=== PATIENT | female | born 1965 | race Caucasian/White ===

== ENCOUNTER 2020-07-13 13:58 | Outpatient (REF) | payer OTHER, SELFPAY ==
[2020-07-13 17:28] LABS: Syphilis Screen Nonreactive (Nonreactive)
[2020-07-14 08:04] LABS: HBsAGNum1 0.13 S/CO (0.00-0.99); HIV AB/AG Nonreactive (Nonreactive); HIV Num 1 0.08 S/CO (0.00-0.99); Hepatitis B Surface Antigen Negative (Negative)
[2020-07-14 09:17] LABS: HBS Num1 0.38 mIU/mL (0-7.99); HBc Num1 0.27 S/CO (0.00-0.79); Hepatitis B Core Antibody Nonreactive (Nonreactive); ~HepC Num1 0.12 S/CO (0.00-0.79); ~Hepatitis B Surface Antibody NONREACTIVE (Nonreactive); ~Hepatitis C Antibody Nonreactive (Nonreactive)
[2020-07-15 08:45] LABS: Hepatitis A Antibody IgM 0.47 Index (0-0.79); ~Hepatitis A Antibody IgM Nonreactive (Nonreactive)
== END 2020-07-13 13:59 | disposition home or self-care (01) ==
LOC: HO.HMGCLDS 13:58
PROVIDERS: PCP Internal Medicine; Visit Provider Internal Medicine
DX: Z11.3 Encounter for screening for infections with a predominantly sexual mode of transmission (principal); G44.89 Other headache syndrome; F41.1 Generalized anxiety disorder; E78.9 Disorder of lipoprotein metabolism, unspecified; I10 Essential (primary) hypertension; E11.65 Type 2 diabetes mellitus with hyperglycemia
CPT/HCPCS: 86695; 86696; 86704; 86706; 86709; 86780; 86803; 87340; 87389

== ENCOUNTER 2020-07-13 15:07 | Outpatient (REF) | payer OTHER, SELFPAY ==
--- NOTE | 2020-07-13 15:12 | XR_ITS ---
EXAMINATION: XR CERVICAL SPINE CLINICAL INFORMATION: Neck pain COMPARISON: Cervical spine MRI from 2007 TECHNIQUE: 3 views of the cervical spine were obtained. FINDINGS: Bone alignment is normal. No acute fracture or dislocation is seen. There is severe multilevel degenerative spondylosis and degenerative disc disease from C3-C4 to C6-C7. There are soft tissue ossifications posterior to the C5 and C6 spinous processes suggestive of changes related to old trauma. Prevertebral soft tissues are normal. XR/XR cervical spine 3V IMPRESSION: Multilevel degenerative spondylosis and degenerative disc disease from C3-C4 to C6-C7.
== END 2020-07-13 15:08 | disposition home or self-care (01) ==
LOC: HO.HMGCX 15:07
PROVIDERS: PCP Internal Medicine; Visit Provider Internal Medicine
DX: M54.2 Cervicalgia (principal)
CPT/HCPCS: 72040

== ENCOUNTER → 2020-09-07 09:35 | Outpatient (BNVA) | payer OTHER, SELFPAY | PROVIDERS: PCP Internal Medicine; Referring Provider Internal Medicine; Visit Provider Nurse Practitioner Gerontology | DX: Z13.89 Encounter for screening for other disorder (principal) | CPT/HCPCS: Q3014 ==

== ENCOUNTER → 2020-10-05 09:41 | Outpatient (BNVA) | payer OTHER, SELFPAY | PROVIDERS: PCP Internal Medicine; Visit Provider Nurse Practitioner Gerontology | DX: E11.65 Type 2 diabetes mellitus with hyperglycemia (principal); Z79.4 Long term (current) use of insulin; I10 Essential (primary) hypertension | CPT/HCPCS: Q3014 ==

== ENCOUNTER 2022-03-27 11:07 | Outpatient (REF) | payer OTHER, SELFPAY ==
[2022-03-27 14:01] LABS: Alanine Aminotransferase 55 U/L (0-31); Albumin Level 4.3 g/dL (3.5-5.0); Alkaline Phosphatase 110 U/L (39-117); Anion Gap 18 (12-20); Aspartate Amino Transferase 51 U/L (5-31); Bilirubin Total 0.5 mg/dL (0.0-1.0); Blood Urea Nitrogen 34 mg/dL (9-16); Calcium 10.1 mg/dL (8.4-10.2); Carbon Dioxide 22 mmol/L (22-29); Chloride 101 mmol/L (96-108); Cholesterol 211 mg/dL; Estimated Glomerular Filt Rate 31; Glucose Fasting 223 mg/dL (60-99); HDL Cholesterol 71 mg/dL; LDL Cholesterol Calculated 106 mg/dl; Potassium 4.4 mmol/L (3.3-5.1); Sodium 137 mmol/L (135-145); Total Protein 7.6 g/dL (6.5-8.0); Triglycerides 172 mg/dL
[2022-03-27 14:06] LABS: Estimated Average Glucose 298 mg/dL
== END 2022-03-27 11:08 | disposition home or self-care (01) ==
LOC: HO.HMGCLDS 11:07
PROVIDERS: PCP Internal Medicine; Visit Provider Internal Medicine
DX: E11.9 Type 2 diabetes mellitus without complications (principal); I10 Essential (primary) hypertension; F41.1 Generalized anxiety disorder; E78.9 Disorder of lipoprotein metabolism, unspecified; Z79.4 Long term (current) use of insulin
CPT/HCPCS: 36415; 80053; 80061; 83036

== ENCOUNTER 2022-07-19 15:52 | Inpatient (IN) | payer OTHER, SELFPAY ==
--- NOTE | ~2022-07-19 | US_ITS ---
EXAMINATION: US EXTREMITY NONVASCULAR LIMITED CLINICAL INFORMATION: 57-year-old female with history of left axillary mass. There is a report of a red, painful lump for 3 days. COMPARISON: None TECHNIQUE: Sonographic imaging of superficial tissues in the left axillary region is performed using a high-resolution linear transducer. US/US extremity nonvascular lr FINDINGS AND IMPRESSION: Within the area of palpable concern at the left axilla, there is abnormal echotexture in a 1.4 x 1.4 x 1.5 cm area. Centrally, this has the appearance of an irregular shaped fluid containing structure cyst. The hypoechoic component is extending towards the skin surface and measures up to 0.6 m transverse and 1.1 cm in depth. The surrounding tissues are mildly hypervascular and slightly hyperechoic compared to the other adipose tissue. Differential considerations include a mildly inflamed, partially collapsed epidermal inclusion cyst or small abscess. No lymphadenopathy is seen in the area of palpable concern.
[2022-07-19 15:55] VITALS: BP 146/60; BP 150/70; PULSE 88; PULSE 96; RESP 19; TEMP 37; O2SAT 95; O2SAT 97; BMI 44.2
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
[2022-07-19 16:32] LABS: Appearance Urine Cloudy; Color Urine Yellow; Glucose Urine UA >=1000 mg/dL (Negative); Leukocyte Esterase Urine Trace (Negative); Nitrite Urine Negative (Negative); PH 5.5 (5.0-9.0); Specific Gravity - Urine >= 1.030 (1.005-1.025); UMIC TRIGGER UACC YES; Urine Blood Negative (Negative); Urine Ketones 15 mg/dL (Negative); Urine Protein Negative (Neg-Trace)
[2022-07-19 16:34] LABS: Glucose, Whole Blood 362 mg/dL (60-115)
[2022-07-19 16:35] LABS: Bacteria Urine 3+ (None Seen); Hyaline Casts Urine 0-2 /LPF (0-2); RBC Urine 0-2 /HPF (0-2); UACC Culture Trigger YES; WBC Urine >50 /HPF (0-5)
[2022-07-19 16:46] LABS: Amphetamine Screen Urine Not Detected (Not Detect); Barbiturates, Urine Not Detected (Not Detect); Benzodiazepines Screen Urine POSITIVE (Not Detect); Cannabinoid Screen Urine Not Detected (Not Detect); Cocaine Screen Urine Not Detected (Not Detect); Fentanyl, urine Not Detected (Not Detect); Opiate Screen Urine Not Detected (Not Detect); Phencyclidine Screen Urine Not Detected (Not Detect)
[2022-07-19 16:46] LABS: MANUAL DIFF FLAG NO
[2022-07-19 16:47] LABS: COVID-19 Test Negative (Negative)
[2022-07-19 16:53] LABS: Basophils Absolute Auto 0.1 X10*3/uL (0.0-0.2); Basophils Percent Auto 0.6 % (0-2); Eosinophils Absolute Auto 0.1 X10*3/uL (0.0-0.4); Eosinophils Percent Auto 1.2 % (0-4); Hematocrit 41.3 % (37.0-47.0); Hemoglobin 13.8 g/dl (12.0-16.0); Imm Gran Abs Auto 0.02 X10*3/uL (0.00-0.03); Imm Gran Pct Auto 0.2 % (0.0-0.4); Lymphocytes Absolute Auto 2.2 X10*3/uL (1.2-4.9); Lymphocytes Percent Auto 26.9 % (20-40); Mean Corpuscular HGB Conc 33.4 g/dl (31.0-35.0); Mean Corpuscular Hemoglobin 30.2 pg (27.0-33.0); Mean Corpuscular Volume 90.4 fL (80.0-98.0); Mean Platelet Volume 10.1 fL (9.4-12.3); Monocytes Absolute Auto 0.7 X10*3/uL (0.1-1.2); Monocytes Percent Auto 8.5 % (2-11); Neutrophils Absolute Auto 5.1 x10*3/uL (2.0-8.3); Neutrophils Percent Auto 62.6 % (45-73); Platelet Count 254 X10*3/uL (160-400); Red Blood Count 4.57 X10*6/uL (4.20-5.50); Red Cell Distribution Width 13.1 % (11.0-16.0); White Blood Count 8.1 X10*3/uL (4.8-10.8)
--- NOTE | 2022-07-19 17:00 | ECG_ITS ---
Test Reason : med clearance Blood Pressure : / mmHG Vent. Rate : 062 BPM Atrial Rate : 062 BPM P-R Int : 144 ms QRS Dur : 098 ms QT Int : 448 ms P-R-T Axes : 062 -20 003 degrees QTc Int : 454 ms Normal sinus rhythm Incomplete right bundle branch block Abnormal ECG When compared with ECG of 23-OCT-2013 15:49, No significant changes seen Referred By: Lorrie Huggins Electronically Signed By:FACUNDO DIMAS MD
[2022-07-19 17:13] LABS: Alanine Aminotransferase 28 U/L (0-31); Albumin Level 3.8 g/dL (3.5-5.0); Alkaline Phosphatase 89 U/L (39-117); Anion Gap 18 (12-20); Aspartate Amino Transferase 20 U/L (5-31); Bilirubin Total 0.6 mg/dL (0.0-1.0); Blood Urea Nitrogen 9 mg/dL (9-16); Calcium 8.8 mg/dL (8.4-10.2); Carbon Dioxide 20 mmol/L (22-29); Chloride 105 mmol/L (96-108); Creatinine Clr Calc Pharmacy 87.5; Estimated Glomerular Filt Rate > 60; Ethanol < 10 mg/dL; Glucose Random 406 mg/dL (60-115); Sodium 139 mmol/L (135-145); Total Protein 6.7 g/dL (6.5-8.0)
[2022-07-19] MEDS: Insulin Lispro 100 UNIT/ML 3 ML VIAL 12 UNIT SUBCUT (17:27)
[2022-07-19] MEDS: Fluconazole 150 MG TABLET PO (17:28)
[2022-07-19] MEDS: Nitrofurantoin Monohyd/M-Cryst 100 MG CAPSULE PO (17:28)
[2022-07-19] MEDS: Acetaminophen 325 MG TABLET 650 MG PO (17:28)
[2022-07-19 21:05] LABS: Glucose, Whole Blood 178 mg/dL (60-115)
[2022-07-19] MEDS: QUEtiapine Fumarate 25 MG TABLET PO (22:20)
[2022-07-19] MEDS: Mirtazapine 30 MG TABLET PO (22:20)
[2022-07-19] MEDS: Insulin Lispro 100 UNIT/ML 3 ML VIAL SUBCUT (22:20)
[2022-07-19] MEDS: hydrOXYzine HCL 25 MG TABLET PO (22:21)
[2022-07-19] MEDS: traZODone HCL 100 MG TABLET 300 MG PO (22:21)
[2022-07-19] MEDS: lamoTRIgine 100 MG TABLET PO (22:21)
--- NOTE | 2022-07-20 02:57 | PC.NURSE ---
Addendum entered by Rosalba Roche RN 07/20/22 06:55: Report given to SUSHIL Woods Original Note: report received from SUSHIL Meek pt appear asleep no signs of acute distress notice breathing equally unlabored close monitoring maintained
[2022-07-20 06:00] VITALS: RESP 16
--- NOTE | 2022-07-20 07:02 | PC.NURSE ---
report taken from jessica lama, pt asleep in room resp even and unlabored. pt aware of plan of care for an inpatient bed search.
[2022-07-20 08:44] LABS: Glucose, Whole Blood 241 mg/dL (60-115)
[2022-07-20 08:45] VITALS: BP 127/76; PULSE 73; RESP 19; TEMP 36.4; O2SAT 92
[2022-07-20] MEDS: Pravastatin Sodium 20 MG TABLET PO (08:50)
[2022-07-20] MEDS: lisinopriL 10 MG TABLET PO (08:50)
[2022-07-20] MEDS: Escitalopram Oxalate 20 MG TABLET PO (08:50)
[2022-07-20] MEDS: Insulin Glargine,Hum.rec.anlog 100 UNIT/ML 10 ML VIAL 31 UNIT SUBCUT (08:50)
[2022-07-20] MEDS: lamoTRIgine 100 MG TABLET PO ×2 (08:50→22:05)
[2022-07-20] MEDS: Nitrofurantoin Monohyd/M-Cryst 100 MG CAPSULE PO ×2 (08:50→22:05)
[2022-07-20] MEDS: hydrOXYzine HCL 25 MG TABLET PO ×2 (08:50→22:05)
[2022-07-20] MEDS: Insulin Lispro 100 UNIT/ML 3 ML VIAL SUBCUT ×4 (08:51→22:05)
[2022-07-20 13:17] LABS: Glucose, Whole Blood 385 mg/dL (60-115)
--- NOTE | 2022-07-20 16:16 | PC.NURSE ---
Addendum entered by Judd Bell 07/20/22 17:52: Lala Jones was admitted to at 2:00 pm from the ED POD on a CV for MDD. Patient was initially sectioned in the field for making SI statements. She is alert and oriented x3, pleasant, and cooperative. Mood is depressed. Affect is sad. She states that she has occasional AH and hears the voices of her mother and father. She does not seems paranoid or suspicious. Thought process is linear. She has vague SI, related to hopelessness from not having a home, not having any friends , and recent deaths of several close family members. She Denies ETOH and substance use. Medically she has OA of the bilateral knees and arthritis of the spine, for which she ambulates with a cane or walker. She is on 15 min checks. Original Note: Lala Jones was admitted to
--- NOTE | 2022-07-20 17:33 | P.CNPS_ITS ---
History of Present Illness Chief Complaint: [facility] Medical History Anxiety, generalized Diabetes type 2, uncontrolled Headache syndrome Hypertension, essential Lipid disorder Long-term current use of insulin for diabetes mellitus Neck pain Suicidal ideation Surgical History Hernia History of appendectomy History of colectomy History of lumpectomy of left breast History of repair of left rotator cuff History of repair of right rotator cuff Hx of cholecystectomy Diagnostics Vital Signs (24Hr): Vital Signs - 24 hr 07/20/22 06:00 07/20/22 08:45 Temperature 97.6 F Pulse Rate 73 Respiratory Rate 16 19 Blood Pressure 127/76 Pulse Oximetry 92 Oxygen Delivery Method Room Air BMI result Body Mass Index 44.2 Labs Results: 07/19/22 16:43 07/19/22 16:43 Labs: Laboratory Results - last 48 hr 07/19/22 07/19/22 07/19/22 16:13 16:13 16:13 WBC RBC Hgb Hct MCV MCH MCHC RDW Plt Count MPV Immature Gran % (Auto) Neut % (Auto) Lymph % (Auto) [place] % (Auto) Eos % (Auto) Baso % (Auto) Lymph # (Auto) [place] # (Auto) Eos # (Auto) Baso # (Auto) Abs Immat Gran (auto) Absolute Neuts (auto) Absolute Nucleated RBC Nucleated RBC % (auto) Sodium Potassium Chloride Carbon Dioxide Anion Gap BUN Creatinine Estim Creat Clear Calc Estimated GFR POC Glucose Random Glucose Calcium Total Bilirubin AST ALT Alkaline Phosphatase Total Protein Albumin Urine Color Yellow Urine Appearance Cloudy Urine pH 5.5 Ur Specific [place] >= 1.030 H Urine Protein Negative Urine Glucose (UA) >=1000 H Urine Ketones 15 Urine Blood Negative Urine Nitrite Negative Ur Leukocyte Esterase Trace H Urine RBC 0-2 Urine WBC >50 H Ur Squamous Epith Cells 11-20 Urine Bacteria 3+ Hyaline Casts 0-2 Urine Opiates Screen Not Detected Urine Fentanyl Screen Not Detected Ur Barbiturates Screen Not Detected Ur Phencyclidine Scrn Not Detected Ur Amphetamines Screen Not Detected U Benzodiazepines Scrn POSITIVE H Urine Cocaine Screen Not Detected U Marijuana (THC) Screen Not Detected Ethyl Alcohol COVID-19 ([facility]ON) Negative COVID-19 Clin Com See Note 11/12/0507/19/22 07/19/22 16:26 16:43 16:43 WBC 8.1 RBC 4.57 Hgb 13.8 Hct 41.3 MCV 90.4 MCH 30.2 MCHC 33.4 RDW 13.1 Plt Count 254 MPV 10.1 Immature Gran % (Auto) 0.2 Neut % (Auto) 62.6 Lymph % (Auto) 26.9 [place] % (Auto) 8.5 Eos % (Auto) 1.2 Baso % (Auto) 0.6 Lymph # (Auto) 2.2 [place] # (Auto) 0.7 Eos # (Auto) 0.1 Baso # (Auto) 0.1 Abs Immat Gran (auto) 0.02 Absolute Neuts (auto) 5.1 Absolute Nucleated RBC 0.000 Nucleated RBC % (auto) 0.0 Sodium 139 Potassium 4.0 Chloride 105 Carbon Dioxide 20 L Anion Gap 18 BUN 9 D Creatinine 0.87 Estim Creat Clear Calc 87.5 Estimated GFR > 60 POC Glucose 362 H* Random Glucose 406 H* Calcium 8.8 D Total Bilirubin 0.6 AST 20 D ALT 28 Alkaline Phosphatase 89 Total Protein 6.7 Albumin 3.8 Urine Color Urine Appearance Urine pH Ur Specific [place] Urine Protein Urine Glucose (UA) Urine Ketones Urine Blood Urine Nitrite Ur Leukocyte Esterase Urine RBC Urine WBC Ur Squamous Epith Cells Urine Bacteria Hyaline Casts Urine Opiates Screen Urine Fentanyl Screen Ur Barbiturates Screen Ur Phencyclidine Scrn Ur Amphetamines Screen U Benzodiazepines Scrn Urine Cocaine Screen U Marijuana (THC) Screen Ethyl Alcohol < 10 COVID-19 ([facility]) COVID-19 Clin Com 07/19/22 07/20/22 07/20/22 21:01 08:40 13:14 WBC RBC Hgb Hct MCV MCH MCHC RDW Plt Count MPV Immature Gran % (Auto) Neut % (Auto) Lymph % (Auto) [place] % (Auto) Eos % (Auto) Baso % (Auto) Lymph # (Auto) [place] # (Auto) Eos # (Auto) Baso # (Auto) Abs Immat Gran (auto) Absolute Neuts (auto) Absolute Nucleated RBC Nucleated RBC % (auto) Sodium Potassium Chloride Carbon Dioxide Anion Gap BUN Creatinine Estim Creat Clear Calc Estimated GFR POC Glucose 178 H 241 H 385 H* Random Glucose Calcium Total Bilirubin AST ALT Alkaline Phosphatase Total Protein Albumin Urine Color Urine Appearance Urine pH Ur Specific [place] Urine Protein Urine Glucose (UA) Urine Ketones Urine Blood Urine Nitrite Ur Leukocyte Esterase Urine RBC Urine WBC Ur Squamous Epith Cells Urine Bacteria Hyaline Casts Urine Opiates Screen Urine Fentanyl Screen Ur Barbiturates Screen Ur Phencyclidine Scrn Ur Amphetamines Screen U Benzodiazepines Scrn Urine Cocaine Screen U Marijuana (THC) Screen Ethyl Alcohol COVID-19 ([facility]) COVID-19 Clin Com Medications Medications Current Medications Acetaminophen (Acetaminophen 325 Mg Tablet) 650 mg PO Q6H PRN PRN Reason: Headache/Pain Mild Scale (1-3) Al Hydroxide/Mg Hydroxide (Magnesium Hydrox/Alum Hydrox 30 Ml Oral.Susp) 30 ml PO Q6H PRN PRN Reason: Heartburn/Nausea Diazepam (Diazepam 2 Mg Tablet) 2 mg PO DAILY PRN PRN Reason: Anxiety Escitalopram Oxalate (Escitalopram Oxalate 20 Mg Tablet) 20 mg PO DAILY [facility] Last Admin: 07/20/22 08:50 Dose: 20 mg Hydroxyzine HCl (Hydroxyzine Hcl 25 Mg Tablet) 25 mg PO TID PRN PRN Reason: Anxiety Hydroxyzine HCl (Hydroxyzine Hcl 25 Mg Tablet) 25 mg PO BID [facility] Last Admin: 07/20/22 08:50 Dose: 25 mg Hydroxyzine HCl (Hydroxyzine Hcl 25 Mg Tablet) 25 mg PO Q6H PRN PRN Reason: Anxiety Insulin Glargine (Insulin Glargine,Hum.Rec.Anlog 100 Unit/Ml 10 Ml Vial) 31 unit SUBCUT DAILY [facility] Last Admin: 07/20/22 08:50 Dose: 31 unit Insulin Human Lispro (Insulin Lispro 100 Unit/Ml 3 Ml Vial) 0 unit SUBCUT QIDACHS [facility]; Protocol Last Admin: 07/20/22 15:07 Dose: 10 unit Lamotrigine (Lamotrigine 100 Mg Tablet) 100 mg PO BID [facility] Last Admin: 07/20/22 08:50 Dose: 100 mg Lisinopril (Lisinopril 10 Mg Tablet) 10 mg PO DAILY [facility]; Protocol Last Admin: 07/20/22 08:50 Dose: 10 mg Magnesium Hydroxide (Milk Of Magnesia 30 Ml Oral.Susp) 30 ml PO DAILY PRN PRN Reason: Constipation Mirtazapine (Mirtazapine 30 Mg Tablet) 30 mg PO BEDTIME [facility] Last Admin: 07/19/22 22:20 Dose: 30 mg Nicotine Polacrilex (Nicotine Polacrilex 2 Mg Gum) 4 mg BUCCAL Q2H PRN PRN Reason: Nicotine Cravings Nitrofurantoin Macrocrystals (Nitrofurantoin Monohyd/M-Cryst 100 Mg Capsule) 100 mg PO BID [facility] Stop: 07/26/22 20:59 Last Admin: 07/20/22 08:50 Dose: 100 mg Pravastatin Sodium (Pravastatin Sodium 20 Mg Tablet) 20 mg PO DAILY [facility] Last Admin: 07/20/22 08:50 Dose: 20 mg Quetiapine Fumarate (Quetiapine Fumarate 25 Mg Tablet) 25 mg PO BEDTIME [facility] Last Admin: 07/19/22 22:20 Dose: 25 mg Trazodone HCl (Trazodone Hcl 100 Mg Tablet) 300 mg PO BEDTIME [facility] Last Admin: 07/19/22 22:21 Dose: 300 mg Trazodone HCl (Trazodone Hcl 50 Mg Tablet) 50 mg PO BEDTIME PRN PRN Reason: Insomnia Allergies Allergies Allergy/AdvReac Type Severity Reaction Status Date / Time codeine [Codeine] Allergy Intermediate ITCH Verified 03/27/22 10:41 naproxen [From Naprosyn] Allergy Intermediate SWELLING Verified 03/27/22 10:41 morphine [Morphine] Allergy Mild ITCHING Verified 03/27/22 10:41 sumatriptan [From Imitrex] Allergy Mild HEADACHE Verified 03/27/22 10:41 WORSENS doxycycline Allergy Unknown unknown Verified 03/27/22 10:41 gabapentin Allergy Unknown Unknown Verified 03/27/22 10:41 Penicillins [PENICILLINS] Allergy Unknown HIVES Verified 03/27/22 10:41 Sulfa (Sulfonamide Allergy Unknown N/V Verified 03/27/22 10:41 Antibiotics) [SULFA (SULFONAMIDE ANTIBIOTICS)] sulfamethoxazole Allergy Unknown N/V Verified 03/27/22 10:41 [From BACTRIM] trimethoprim [From BACTRIM] Allergy Unknown N/V Verified 03/27/22 10:41 pregabalin AdvReac Unknown Unknown Verified 03/27/22 10:41 Assessment & Plan I spent minutes with the patient and/or on the patient floor today, greater than?50% of which was spent counseling/coordinating care.
[2022-07-20 17:40] LABS: Glucose, Whole Blood 311 mg/dL (60-115)
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
[2022-07-20 20:15] VITALS: BP 147/62; PULSE 71; RESP 18; TEMP 36.1; O2SAT 96
[2022-07-20 21:53] LABS: Glucose, Whole Blood 299 mg/dL (60-115)
[2022-07-20] MEDS: QUEtiapine Fumarate 100 MG TABLET PO (22:05)
[2022-07-21 08:15] VITALS: BP 139/80; PULSE 77; RESP 18; TEMP 36.6; O2SAT 96
[2022-07-21 09:02] LABS: Glucose, Whole Blood 330 mg/dL (60-115)
[2022-07-21] MEDS: Insulin Lispro 100 UNIT/ML 3 ML VIAL SUBCUT ×4 (09:13→21:21)
[2022-07-21] MEDS: Insulin Glargine,Hum.rec.anlog 100 UNIT/ML 10 ML VIAL 31 UNIT SUBCUT (09:15)
[2022-07-21] MEDS: hydrOXYzine HCL 25 MG TABLET PO ×3 (09:16→21:26)
[2022-07-21] MEDS: Escitalopram Oxalate 5 MG TABLET 15 MG PO (09:18)
[2022-07-21] MEDS: Pravastatin Sodium 20 MG TABLET PO (09:18)
[2022-07-21] MEDS: lamoTRIgine 100 MG TABLET PO ×2 (09:18→21:26)
[2022-07-21] MEDS: Nitrofurantoin Monohyd/M-Cryst 100 MG CAPSULE PO ×2 (09:19→21:26)
[2022-07-21] MEDS: lisinopriL 10 MG TABLET PO (09:28)
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
[2022-07-21 12:27] LABS: Glucose, Whole Blood 422 mg/dL (60-115)
[2022-07-21] MEDS: Acetaminophen 325 MG TABLET 650 MG PO ×2 (14:57→21:25)
[2022-07-21] MEDS: QUEtiapine Fumarate 25 MG TABLET PO (16:28)
[2022-07-21 17:34] LABS: Glucose, Whole Blood 405 mg/dL (60-115)
[2022-07-21 19:10] VITALS: BP 111/58; PULSE 96; RESP 16; TEMP 36.1; O2SAT 96
[2022-07-21] MEDS: QUEtiapine Fumarate 100 MG TABLET PO (21:26)
[2022-07-21] MEDS: diazePAM 2 MG TABLET PO (21:26)
[2022-07-21 21:41] LABS: Glucose, Whole Blood 353 mg/dL (60-115)
[2022-07-22 08:15] VITALS: BP 132/60; PULSE 92; RESP 18; TEMP 36.6; O2SAT 97
[2022-07-22 08:46] LABS: Glucose, Whole Blood 293 mg/dL (60-115)
[2022-07-22] MEDS: Acetaminophen 325 MG TABLET 650 MG PO ×2 (09:19→15:26)
[2022-07-22] MEDS: Escitalopram Oxalate 5 MG TABLET 15 MG PO (09:20)
[2022-07-22] MEDS: lamoTRIgine 100 MG TABLET PO ×2 (09:21→21:18)
[2022-07-22] MEDS: lisinopriL 10 MG TABLET PO (09:22)
[2022-07-22] MEDS: hydrOXYzine HCL 25 MG TABLET PO ×2 (09:22→21:18)
[2022-07-22] MEDS: Pravastatin Sodium 20 MG TABLET PO (09:23)
[2022-07-22] MEDS: Nitrofurantoin Monohyd/M-Cryst 100 MG CAPSULE PO ×2 (09:23→21:18)
[2022-07-22] MEDS: Insulin Lispro 100 UNIT/ML 3 ML VIAL SUBCUT ×4 (09:23→21:18)
[2022-07-22] MEDS: Insulin Glargine,Hum.rec.anlog 100 UNIT/ML 10 ML VIAL 31 UNIT SUBCUT (09:26)
[2022-07-22 12:09] LABS: Glucose, Whole Blood 393 mg/dL (60-115)
[2022-07-22 17:16] LABS: Glucose, Whole Blood 265 mg/dL (60-115)
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
[2022-07-22] MEDS: Lidocaine 4 % Patch ADH..PATCH 1 PATCH TRANSDERMA ×2 (17:45→19:04)
[2022-07-22 19:40] VITALS: BP 112/56; PULSE 72; RESP 16; TEMP 36.6; O2SAT 98
[2022-07-22 21:02] LABS: Glucose, Whole Blood 352 mg/dL (60-115)
[2022-07-22] MEDS: diazePAM 2 MG TABLET PO (21:18)
[2022-07-22] MEDS: QUEtiapine Fumarate 100 MG TABLET PO (21:18)
[2022-07-23 06:00] VITALS: BP 143/65; PULSE 72; RESP 15; TEMP 36.6; O2SAT 96
[2022-07-23 08:46] LABS: Glucose, Whole Blood 229 mg/dL (60-115)
[2022-07-23] MEDS: Insulin Glargine,Hum.rec.anlog 100 UNIT/ML 10 ML VIAL 31 UNIT SUBCUT (09:24)
[2022-07-23] MEDS: Insulin Lispro 100 UNIT/ML 3 ML VIAL SUBCUT ×4 (09:25→22:17)
[2022-07-23] MEDS: Escitalopram Oxalate 5 MG TABLET 15 MG PO (09:26)
[2022-07-23] MEDS: lamoTRIgine 100 MG TABLET PO ×2 (09:27→22:12)
[2022-07-23] MEDS: hydrOXYzine HCL 25 MG TABLET PO ×2 (09:27→22:12)
[2022-07-23] MEDS: Nitrofurantoin Monohyd/M-Cryst 100 MG CAPSULE PO ×2 (09:27→22:11)
[2022-07-23] MEDS: Pravastatin Sodium 20 MG TABLET PO (09:27)
[2022-07-23] MEDS: lisinopriL 10 MG TABLET PO (09:27)
[2022-07-23] MEDS: Lidocaine 4 % Patch ADH..PATCH 2 PATCH TRANSDERMA (11:27)
[2022-07-23 13:27] LABS: Glucose, Whole Blood 443 mg/dL (60-115)
[2022-07-23] MEDS: Capsaicin 0.025% Cream 60 GM TUBE 1 APPL TOPICAL ×2 (16:34→22:16)
[2022-07-23 17:34] LABS: Glucose, Whole Blood 259 mg/dL (60-115)
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
[2022-07-23 22:01] VITALS: BP 145/78; PULSE 69; RESP 16; TEMP 36.1; O2SAT 96
[2022-07-23 22:08] LABS: Glucose, Whole Blood 316 mg/dL (60-115)
[2022-07-23] MEDS: QUEtiapine Fumarate 50 MG TABLET 150 MG PO (22:12)
[2022-07-24] MEDS: QUEtiapine Fumarate 25 MG TABLET PO (04:26)
[2022-07-24 08:20] VITALS: PULSE 60; RESP 18; TEMP 36.6; O2SAT 97
[2022-07-24 08:45] LABS: Glucose, Whole Blood 249 mg/dL (60-115)
[2022-07-24] MEDS: Fluconazole 150 MG TABLET PO (09:50)
[2022-07-24] MEDS: Escitalopram Oxalate 5 MG TABLET 15 MG PO (09:50)
[2022-07-24] MEDS: lamoTRIgine 100 MG TABLET PO ×2 (09:52→20:33)
[2022-07-24] MEDS: lisinopriL 10 MG TABLET PO (09:52)
[2022-07-24] MEDS: hydrOXYzine HCL 25 MG TABLET PO ×2 (09:52→20:33)
[2022-07-24] MEDS: Pravastatin Sodium 20 MG TABLET PO (09:53)
[2022-07-24] MEDS: Nitrofurantoin Monohyd/M-Cryst 100 MG CAPSULE PO ×2 (09:53→20:32)
[2022-07-24] MEDS: Insulin Glargine,Hum.rec.anlog 100 UNIT/ML 10 ML VIAL 31 UNIT SUBCUT (09:54)
[2022-07-24] MEDS: Insulin Lispro 100 UNIT/ML 3 ML VIAL SUBCUT ×4 (09:55→20:33)
[2022-07-24] MEDS: Capsaicin 0.025% Cream 60 GM TUBE 1 APPL TOPICAL ×3 (09:56→20:39)
[2022-07-24] MEDS: A and D Ointment 56.7 GM TUBE 1 APPL TOPICAL (10:03)
[2022-07-24] MEDS: Acetaminophen 325 MG TABLET 650 MG PO (13:16)
[2022-07-24] MEDS: diazePAM 2 MG TABLET PO (15:33)
--- NOTE | 2022-07-24 15:34 | PC.NURSE ---
Pt reports anxiety 04/25 depression 05/26 Pt requested her PRN,Valium . Pt will seek staff if she needs to talk or medication.
[2022-07-24 17:38] LABS: Glucose, Whole Blood 278 mg/dL (60-115)
[2022-07-24 17:50] LABS: Glucose, Whole Blood 346 mg/dL (60-115)
[2022-07-24 20:00] VITALS: BP 119/60; PULSE 85; RESP 18; TEMP 36.3; O2SAT 94
[2022-07-24 20:27] LABS: Glucose, Whole Blood 342 mg/dL (60-115)
[2022-07-24] MEDS: QUEtiapine Fumarate 50 MG TABLET 150 MG PO (20:33)
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
[2022-07-24 21:38] LABS: Influenza A PCR NEGATIVE (Negative); Influenza B PCR NEGATIVE (Negative); Resp Syncy Virus RNA Qual PCR NEGATIVE (Negative); SARS COV2 PCR INHOUSE NEGATIVE (Negative)
[2022-07-24] MEDS: QUEtiapine Fumarate 50 MG TABLET PO (23:27)
[2022-07-25] MEDS: Acetaminophen 325 MG TABLET 650 MG PO ×3 (03:37→15:15)
[2022-07-25] MEDS: Throat Lozenge, Medicated LOZENGE 1 LOZENGE MUCOUS MEM ×3 (03:37→12:10)
[2022-07-25] MEDS: hydrOXYzine HCL 25 MG TABLET PO ×4 (03:37→19:53)
[2022-07-25 08:30] VITALS: BP 141/64; PULSE 73; RESP 18; TEMP 36.2; O2SAT 97
[2022-07-25 08:55] LABS: Glucose, Whole Blood 353 mg/dL (60-115)
[2022-07-25] MEDS: Nitrofurantoin Monohyd/M-Cryst 100 MG CAPSULE PO ×2 (09:50→19:54)
[2022-07-25] MEDS: Escitalopram Oxalate 5 MG TABLET 15 MG PO (09:51)
[2022-07-25] MEDS: lisinopriL 10 MG TABLET PO (09:52)
[2022-07-25] MEDS: Pravastatin Sodium 20 MG TABLET PO (09:52)
[2022-07-25] MEDS: lamoTRIgine 100 MG TABLET PO ×2 (09:52→19:53)
[2022-07-25] MEDS: Insulin Glargine,Hum.rec.anlog 100 UNIT/ML 10 ML VIAL 31 UNIT SUBCUT (09:54)
[2022-07-25] MEDS: Insulin Lispro 100 UNIT/ML 3 ML VIAL SUBCUT ×4 (09:55→21:19)
[2022-07-25] MEDS: Capsaicin 0.025% Cream 60 GM TUBE 1 APPL TOPICAL (09:57)
[2022-07-25] MEDS: A and D Ointment 56.7 GM TUBE 1 APPL TOPICAL (09:58)
[2022-07-25] MEDS: guaiFENesin 100 MG/5 ML LIQUID PO ×3 (12:09→20:56)
[2022-07-25 12:51] LABS: Glucose, Whole Blood 377 mg/dL (60-115)
[2022-07-25] MEDS: QUEtiapine Fumarate 25 MG TABLET PO (14:19)
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
[2022-07-25 17:12] LABS: Glucose, Whole Blood 227 mg/dL (60-115)
[2022-07-25 18:45] VITALS: BP 106/65; PULSE 75; RESP 16; TEMP 36.6; O2SAT 96
[2022-07-25] MEDS: QUEtiapine Fumarate 200 MG TABLET PO (19:54)
[2022-07-25 21:12] LABS: Glucose, Whole Blood 264 mg/dL (60-115)
[2022-07-26] MEDS: guaiFENesin 100 MG/5 ML LIQUID PO ×3 (00:51→13:16)
[2022-07-26] MEDS: Acetaminophen 325 MG TABLET 650 MG PO (01:16)
[2022-07-26] MEDS: Throat Lozenge, Medicated LOZENGE 1 LOZENGE MUCOUS MEM ×3 (01:17→17:32)
[2022-07-26] MEDS: QUEtiapine Fumarate 50 MG TABLET PO (01:17)
[2022-07-26 08:03] VITALS: BP 125/57; PULSE 79; RESP 15; TEMP 36.8; O2SAT 96
[2022-07-26 08:24] LABS: Glucose, Whole Blood 496 mg/dL (60-115)
[2022-07-26] MEDS: Insulin Glargine,Hum.rec.anlog 100 UNIT/ML 10 ML VIAL 31 UNIT SUBCUT (08:46)
[2022-07-26] MEDS: hydrOXYzine HCL 25 MG TABLET PO ×4 (08:47→21:27)
[2022-07-26] MEDS: Pravastatin Sodium 20 MG TABLET PO (08:47)
[2022-07-26] MEDS: Insulin Lispro 100 UNIT/ML 3 ML VIAL SUBCUT ×4 (08:47→21:31)
[2022-07-26] MEDS: Escitalopram Oxalate 5 MG TABLET 15 MG PO (08:47)
[2022-07-26] MEDS: Nitrofurantoin Monohyd/M-Cryst 100 MG CAPSULE PO (08:47)
[2022-07-26] MEDS: lamoTRIgine 100 MG TABLET PO ×2 (08:48→21:28)
[2022-07-26] MEDS: lisinopriL 10 MG TABLET PO (08:48)
[2022-07-26 11:55] VITALS: BMI 42.6
[2022-07-26 13:21] LABS: Glucose, Whole Blood 359 mg/dL (60-115)
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
[2022-07-26 17:41] LABS: Glucose, Whole Blood 351 mg/dL (60-115)
[2022-07-26 21:12] VITALS: BP 90/45; PULSE 70; RESP 16; TEMP 36.7; O2SAT 95
[2022-07-26] MEDS: diazePAM 5 MG TABLET PO (21:27)
[2022-07-26] MEDS: QUEtiapine Fumarate 200 MG TABLET PO (21:27)
[2022-07-26 21:39] LABS: Glucose, Whole Blood 238 mg/dL (60-115)
[2022-07-27 09:09] LABS: Glucose, Whole Blood 249 mg/dL (60-115)
[2022-07-27 09:30] VITALS: BP 107/55; PULSE 85; RESP 16; TEMP 36.5; O2SAT 96
[2022-07-27] MEDS: hydrOXYzine HCL 25 MG TABLET PO ×2 (09:33→23:19)
[2022-07-27] MEDS: Escitalopram Oxalate 5 MG TABLET 15 MG PO (09:34)
[2022-07-27] MEDS: lamoTRIgine 100 MG TABLET PO ×2 (09:34→23:19)
[2022-07-27] MEDS: Pravastatin Sodium 20 MG TABLET PO (09:35)
[2022-07-27] MEDS: Insulin Glargine,Hum.rec.anlog 100 UNIT/ML 10 ML VIAL 31 UNIT SUBCUT (09:37)
[2022-07-27] MEDS: Insulin Lispro 100 UNIT/ML 3 ML VIAL SUBCUT ×6 (09:37→23:21)
--- NOTE | 2022-07-27 10:19 | PC.NURSE ---
RN held lisinopril because BP was 107/55 this AM, waited until pt ate breakfast to recheck. Rechecked at 1018 at 148/68, lisinopril administered
[2022-07-27] MEDS: lisinopriL 10 MG TABLET PO (10:28)
[2022-07-27 12:38] LABS: Glucose, Whole Blood 426 mg/dL (60-115)
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
[2022-07-27] MEDS: QUEtiapine Fumarate 25 MG TABLET PO (15:42)
[2022-07-27] MEDS: guaiFENesin 100 MG/5 ML LIQUID PO (15:43)
[2022-07-27] MEDS: Throat Lozenge, Medicated LOZENGE 1 LOZENGE MUCOUS MEM (15:44)
[2022-07-27 17:51] LABS: Glucose, Whole Blood 297 mg/dL (60-115)
[2022-07-27 23:10] VITALS: BP 166/76; PULSE 74; RESP 18; TEMP 36.3; O2SAT 98
[2022-07-27 23:16] LABS: Glucose, Whole Blood 364 mg/dL (60-115)
[2022-07-27] MEDS: diazePAM 2 MG TABLET 4 MG PO (23:19)
[2022-07-27] MEDS: QUEtiapine Fumarate 200 MG TABLET PO (23:19)
[2022-07-28] MEDS: QUEtiapine Fumarate 50 MG TABLET PO (01:40)
[2022-07-28] MEDS: Acetaminophen 325 MG TABLET 650 MG PO ×2 (01:40→15:05)
[2022-07-28 08:50] VITALS: BP 138/67; PULSE 94; RESP 18; TEMP 36.6; O2SAT 96
[2022-07-28 08:56] LABS: Glucose, Whole Blood 261 mg/dL (60-115)
[2022-07-28] MEDS: hydrOXYzine HCL 25 MG TABLET PO ×2 (08:58→21:50)
[2022-07-28] MEDS: Escitalopram Oxalate 5 MG TABLET 15 MG PO (08:58)
[2022-07-28] MEDS: Capsaicin 0.025% Cream 60 GM TUBE 1 APPL TOPICAL (08:59)
[2022-07-28] MEDS: Pravastatin Sodium 20 MG TABLET PO (08:59)
[2022-07-28] MEDS: lamoTRIgine 100 MG TABLET PO ×2 (08:59→21:50)
[2022-07-28] MEDS: lisinopriL 10 MG TABLET PO (08:59)
[2022-07-28] MEDS: Insulin Lispro 100 UNIT/ML 3 ML VIAL SUBCUT ×8 (09:15→21:55)
[2022-07-28] MEDS: Insulin Glargine,Hum.rec.anlog 100 UNIT/ML 10 ML VIAL 40 UNIT SUBCUT (09:51)
[2022-07-28 12:46] LABS: Glucose, Whole Blood 339 mg/dL (60-115)
[2022-07-28] MEDS: QUEtiapine Fumarate 25 MG TABLET PO (15:05)
[2022-07-28 17:32] LABS: Glucose, Whole Blood 305 mg/dL (60-115)
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
[2022-07-28 20:33] LABS: Anion Gap 20 (12-20); Blood Urea Nitrogen 19 mg/dL (9-16); Calcium 9.4 mg/dL (8.4-10.2); Carbon Dioxide 20 mmol/L (22-29); Chloride 102 mmol/L (96-108); Creatinine Clr Calc Pharmacy 74.5; Estimated Glomerular Filt Rate 57; Glucose Random 275 mg/dL (60-115); Potassium 4.8 mmol/L (3.3-5.1); Sodium 137 mmol/L (135-145)
[2022-07-28 21:34] VITALS: BP 180/77; PULSE 85; RESP 18; TEMP 35.9; O2SAT 96
[2022-07-28 21:43] LABS: Glucose, Whole Blood 294 mg/dL (60-115)
[2022-07-28] MEDS: diazePAM 2 MG TABLET 4 MG PO (21:50)
[2022-07-28] MEDS: levoFLOXacin 500 MG TABLET PO (21:50)
[2022-07-28] MEDS: QUEtiapine Fumarate 200 MG TABLET PO (21:50)
[2022-07-29] MEDS: QUEtiapine Fumarate 50 MG TABLET PO (02:21)
[2022-07-29 08:45] VITALS: BP 150/65; PULSE 90; RESP 18; TEMP 36.5; O2SAT 94
[2022-07-29 08:49] LABS: Glucose, Whole Blood 266 mg/dL (60-115)
[2022-07-29] MEDS: Escitalopram Oxalate 20 MG TABLET PO (08:49)
[2022-07-29] MEDS: lamoTRIgine 100 MG TABLET PO ×2 (08:49→21:34)
[2022-07-29] MEDS: Pravastatin Sodium 20 MG TABLET PO (08:49)
[2022-07-29] MEDS: lisinopriL 10 MG TABLET PO (08:50)
[2022-07-29] MEDS: hydrOXYzine HCL 25 MG TABLET PO ×2 (08:50→21:34)
[2022-07-29] MEDS: Insulin Glargine,Hum.rec.anlog 100 UNIT/ML 10 ML VIAL 40 UNIT SUBCUT (09:55)
[2022-07-29] MEDS: Insulin Lispro 100 UNIT/ML 3 ML VIAL SUBCUT ×8 (09:56→21:33)
[2022-07-29 12:32] LABS: Glucose, Whole Blood 314 mg/dL (60-115)
[2022-07-29] MEDS: Acetaminophen 325 MG TABLET 650 MG PO (15:57)
[2022-07-29] MEDS: QUEtiapine Fumarate 25 MG TABLET PO (15:57)
[2022-07-29 17:17] LABS: Glucose, Whole Blood 299 mg/dL (60-115)
[2022-07-29 18:00] VITALS: BP 144/67; PULSE 78; RESP 16; TEMP 36.3; O2SAT 96
[2022-07-29] MEDS: levoFLOXacin 500 MG TABLET PO (19:04)
[2022-07-29 21:31] LABS: Glucose, Whole Blood 387 mg/dL (60-115)
[2022-07-29] MEDS: QUEtiapine Fumarate 200 MG TABLET PO (21:34)
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
[2022-07-29] MEDS: diazePAM 2 MG TABLET 4 MG PO (22:36)
[2022-07-30 08:16] VITALS: BP 135/61; PULSE 78; RESP 16; TEMP 36.2; O2SAT 94
[2022-07-30 08:52] LABS: Glucose, Whole Blood 279 mg/dL (60-115)
[2022-07-30] MEDS: Insulin Glargine,Hum.rec.anlog 100 UNIT/ML 10 ML VIAL 40 UNIT SUBCUT (09:07)
[2022-07-30] MEDS: Insulin Lispro 100 UNIT/ML 3 ML VIAL SUBCUT ×4 (09:07→13:11)
[2022-07-30] MEDS: hydrOXYzine HCL 25 MG TABLET PO (09:08)
[2022-07-30] MEDS: lamoTRIgine 100 MG TABLET PO (09:08)
[2022-07-30] MEDS: lisinopriL 10 MG TABLET PO (09:09)
[2022-07-30] MEDS: Escitalopram Oxalate 20 MG TABLET PO (09:09)
[2022-07-30] MEDS: Pravastatin Sodium 20 MG TABLET PO (09:10)
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
[2022-07-30 12:56] LABS: Glucose, Whole Blood 311 mg/dL (60-115)
[2022-07-30] MEDS: QUEtiapine Fumarate 25 MG TABLET PO (13:15)
== END 2022-07-30 15:30 | disposition home or self-care (01) | DRG 885 ==
LOC: HO.ED 07-20 01:03 → HO.PADLT16 07-20 12:41
PROVIDERS: Nurse Practitioner Family; Registered Nurse; Student in an Organized Health Care Education/Training Program; Admitting Provider Psychiatry & Neurology Psychiatry; Emergency Provider Emergency Medicine; Visit Provider Psychiatry & Neurology Psychiatry
DX: F33.1 Major depressive disorder, recurrent, moderate (principal); R45.851 Suicidal ideations; N39.0 Urinary tract infection, site not specified; F41.1 Generalized anxiety disorder; I10 Essential (primary) hypertension; E11.9 Type 2 diabetes mellitus without complications; Z68.41 Body mass index [BMI] 40.0-44.9, adult; E66.3 Overweight; Z20.822 Contact with and (suspected) exposure to COVID-19; Z23 Encounter for immunization; Z59.01 Sheltered homelessness; Z88.0 Allergy status to penicillin; Z88.2 Allergy status to sulfonamides; Z88.5 Allergy status to narcotic agent; Z88.6 Allergy status to analgesic agent; Z79.4 Long term (current) use of insulin; Z79.899 Other long term (current) drug therapy
CPT/HCPCS: 0241U; 36415; 76882; 80048; 80053; 80307; 81001; 82077; 82947; 85025; 87086; 87635; 90686; 90792; 93005; 99285

== ENCOUNTER 2022-07-31 11:18 | Emergency (ER) | payer OTHER, SELFPAY ==
[2022-07-31 11:22] VITALS: BP 142/69; BP 159/71; PULSE 107; PULSE 95; RESP 18; TEMP 36.8; O2SAT 93; O2SAT 95; BMI 42.5
--- NOTE | 2022-07-31 12:02 | ED.GENADULT ---
HPI - General Adult General Chief complaint: Psychiatric Symptoms Stated complaint: SI PER EMS Time Seen by Provider: 07/31/22 12:02 Source: patient and EMS Mode of arrival: EMS Limitations: no limitations History of Present Illness HPI narrative: Patient is a 57 year old assigned female at with a history of depression presenting to the emergency department today with no complaints. Patient states that she was recounting her last psychiatric admission to a member of [facility] when they called and ambulance and told her she had to come here. Patient denying SI and HI. Patient is not on a section 12. Patient denies any dizziness, lightheadedness, abdominal pain, nausea, vomiting, fever, chills, blurry vision, double vision, loss of vision, chest pain, difficulty breathing, shortness of breath, back pain, night sweats, pain with urination, increased urinary frequency, increased urinary urgency, blood in her urine or stool, syncope or a near syncopal episode, recent trauma or falls, bowel incontinence, bladder incontinence, bowel retention, bladder retention, or any other complaints at this time. Relieving factors: none Exacerbating factors: none Associated symptoms: denies other symptoms Treatments prior to arrival: none Related Data Previous Rx's Medication Instructions Recorded blood sugar diagnostic (FreeStyle #100 ea 07/30/22 Lite Strips) blood sugar diagnostic (FreeStyle #400 strips 07/30/22 Lite Strips) capsaicin 0.025 % topical cream 1 appl topical QID PRN Pain, Mild 07/30/22 (Pain Scale 1-3) 30 days #25 grams citalopram 40 mg tablet 40 mg PO DAILY 30 days #30 tabs 07/30/22 diazepam 2 mg tablet 2 tab PO DAILY PRN Anxiety 30 days 07/30/22 #60 tabs dulaglutide 1.5 mg/0.5 mL 1.5 mg (0.5 mL) subcut QWEEK 30 07/30/22 subcutaneous pen injector days #2 mL (Trulicity) hydroxyzine HCl 25 mg tablet 1 tab PO TID PRN Anxiety 30 days 07/30/22 #90 tabs hydroxyzine HCl 25 mg tablet 25 mg PO BID 30 days #60 tabs 07/30/22 insulin aspart U-100 100 unit/mL See Rx Instructions subcut TID 30 07/30/22 (3 mL) subcutaneous pen days #45 mL insulin degludec 200 unit/mL (3 45 unit (0.225 mL) subcut DAILY 30 07/30/22 mL) subcutaneous pen days #6.75 mL lamotrigine 100 mg tablet 1 tab PO BID 30 days #60 tabs 07/30/22 lancets 28 gauge (FreeStyle #400 ea 07/30/22 Lancets) lancing device (Adjustable Lancing #1 ea 07/30/22 Device) levofloxacin 500 mg tablet 500 mg PO Q24H 6 days #6 tabs 07/30/22 lisinopril 10 mg tablet 10 mg PO DAILY 30 days #30 tabs 07/30/22 pen needle, diabetic 32 gauge x #150 ea 07/30/22 (BD Ultra-Fine Arminda Pen Needle) pravastatin 20 mg tablet 20 mg PO DAILY 30 days #30 caps 07/30/22 quetiapine 200 mg tablet 200 mg PO BEDTIME 30 days #30 tabs 07/30/22 quetiapine 50 mg tablet 50 mg PO BEDTIME PRN insomnia 30 07/30/22 days #30 tabs Allergies Allergy/AdvReac Type Severity Reaction Status Date / Time codeine [Codeine] Allergy Intermediate ITCH Verified 03/27/22 10:41 naproxen [From Naprosyn] Allergy Intermediate SWELLING Verified 03/27/22 10:41 morphine [Morphine] Allergy Mild ITCHING Verified 03/27/22 10:41 sumatriptan [From Imitrex] Allergy Mild HEADACHE Verified 03/27/22 10:41 WORSENS doxycycline Allergy Unknown unknown Verified 03/27/22 10:41 gabapentin Allergy Unknown Unknown Verified 03/27/22 10:41 Penicillins [PENICILLINS] Allergy Unknown HIVES Verified 03/27/22 10:41 Sulfa (Sulfonamide Allergy Unknown N/V Verified 03/27/22 10:41 Antibiotics) [SULFA (SULFONAMIDE ANTIBIOTICS)] sulfamethoxazole Allergy Unknown N/V Verified 03/27/22 10:41 [From BACTRIM] trimethoprim [From BACTRIM] Allergy Unknown N/V Verified 03/27/22 10:41 pregabalin AdvReac Unknown Unknown Verified 03/27/22 10:41 Review of Systems Constitutional: Constitutional: Reports no additional constitutional complaints, Denies chills, Denies fever(s) and Denies night sweats Eyes: Eyes: Reports no additional eye complaints, Denies blurry vision, Denies change in vision, Denies diplopia, Denies eye discharge, Denies loss of vision and Denies eye pain ENT: Denies dizziness Cardiovascular: Cardiovascular: Reports no additional cardiovascular complaints, Denies chest pain, Denies lightheadedness, Denies Loss of Consciousness and Denies dyspnea Respiratory: Respiratory: Reports no additional respiratory complaints and Denies dyspnea Gastrointestinal: Gastrointestinal: Reports no additional gastrointestinal complaints, Denies abdominal pain, Denies melena, Denies hematochezia, Denies change in bowel habits and Denies change in stool character Genitourinary: Genitourinary: Denies hematuria, Denies urinary frequency, Denies dysuria, Denies urinary incontinence, Denies urinary hesitancy and Denies urinary urgency Musculoskeletal: Musculoskeletal: Reports no additional musculoskeletal complaints, Denies numbness and Denies tingling Neurologic: Denies dizziness, Denies loss of vision, Denies numbness and Denies tingling Psychiatric: Psychiatric: Reports no additional psychiatric complaints Endocrine: Endocrine: Reports no additional endocrine complaints Hematologic/Lymphatic: Hematologic/Lymphatic: Reports no additional hematologic/lymphatic complaints Allergic/Immunologic: Allergic/Immunologic: Reports no additional allergic/immunologic complaints [facility] Past Medical History Attestation statement: The following information was validated with the patient. Source: old records reviewed Medical History Anxiety, generalized Diabetes type 2, uncontrolled Headache syndrome Hypertension, essential Lipid disorder Long-term current use of insulin for diabetes mellitus Neck pain Suicidal ideation Surgical History Hernia History of appendectomy History of colectomy History of lumpectomy of left breast History of repair of left rotator cuff History of repair of right rotator cuff Hx of cholecystectomy Family History Family History Father No problems noted. Mother CHF (congestive heart failure) HTN (hypertension) Type 2 diabetes mellitus Bone cancer Brother No problems noted. Brother No problems noted. Social History Social History Household Members: None Housing: Homeless Do you presently have visiting nurse or other home services: No Alcohol intake: never Patient Tobacco Use Status: Never used Tobacco Smoked in Last 30 Days: No Second Hand Smoke Exposure: Yes Use of substances other than those prescribed or required for medical reasons: No Advance Directives: No Advance Directives Information Provided: No Patient : No service: No Current occupational status: disabled Sexual orientation: Straight/Heterosexual Cognitive needs: No Hearing needs: No Vision needs: No Physical Exam ED Vital Signs: Vital Signs - 24 hr 07/31/ 11:22 Temperature 98.2 F Pulse Rate 107 H Respiratory Rate 18 Blood Pressure 159/71 H Pulse Oximetry 93 Oxygen Delivery Method Room Air BMI result Body Mass Index 42.5 Const General: cooperative, no acute distress, alert and awake Nutritional Appearance: well nourished Orientation/consciousness: patient oriented x3 Limitations: no limitations HENMT Head: Yes normal to inspection and Yes atraumatic Ears: hearing grossly normal bilaterally and external ears normal General nose exam: Normal external nose present, no nasal discharge noted and no epistaxis Face and sinus: Yes normal facial exam, No abrasion and No laceration Mouth: Normal oral and palatal mucosa present, no drooling and no muffled voice Eyes General: appearance normal, both eyes and all related structures Periorbital: periorbital findings normal Eyelids: Yes eyelids normal Conjunctivae: conjunctivae normal Pupils: Equal, round and reactive pupils present EOM: EOMs intact bilaterally Neck Neck: Yes normal visual inspection, Yes full ROM and Yes no lymphadenopathy Chest Chest palpation & inspection: normal inspection of the chest Resp Effort & Inspection: normal respiratory effort and able to speak in complete sentences Auscultation: clear to auscultation bilaterally Cardio Rate: regular rate Rhythm: regular rhythm GI Inspection: Yes normal to inspection Neuro General: patient oriented x3 and moves all extremities Cranial nerves: Yes Equal, round and reactive pupils present Cognition (Neuro): normal cognition Motor exam (neuro): 5/5 motor strength present throughout Sensory Exam: Normal double simultaneous stimulation for sensation Coordination: [id number] test normal Extrem General: Yes normal to inspection, Yes full ROM and Yes capillary refill normal Psych Appearance: grossly normal Mental Status: mental status grossly normal Affect: normal affect Attitude: cooperative Thought process: Normal thought process present Thought content: Normal thought content present Insight: Good insight present (Psych) Medical Decision Making MDM Narrative Medical decision making narrative: Patient is a 57 year old assigned female at with a history of depression presenting to the emergency department today with no acute complaints. Patient's physical exam was unremarkable. I explained my physical exam findings to the patient. I answered all questions asked by the patient. I stressed the importance of the patient taking her medication as prescribed. I stressed the importance of the patient following up with her primary care provider. I stressed the importance of the patient returning to the emergency department immediately if she were to develop any dizziness, shortness of breath, difficulty breathing, chest pain, blurry vision, loss of vision, nausea, vomiting, abdominal pain, fever, chills, back pain, or any other complaints. Patient verbalized agreement and understanding with this treatment plan and discharge. Medical Records Medical records reviewed: Yes I reviewed the patient's medical records. Discharge Plan Discharge Clinical Impression: Depression Patient Disposition: Home, Self-Care Instructions: Depression (ED) Additional Instructions: Follow up with your primary care provider. Return to the emergency department immediately if your symptoms worsen or if you develop any dizziness, shortness of breath, difficulty breathing, chest pain, blurry vision, loss of vision, nausea, vomiting, abdominal pain, fever, chills, back pain, or any other complaints. Prescriptions: No Action quetiapine 200 mg Tablet 200 mg PO BEDTIME 30 Days Qty: 30 0RF levofloxacin 500 mg Tablet 500 mg PO Q24H 6 Days Qty: 6 0RF quetiapine 50 mg Tablet 50 mg PO BEDTIME PRN (Reason: insomnia) 30 Days Qty: 30 0RF capsaicin 0.025 % Cream 1 appl topical QID PRN (Reason: Pain, Mild (Pain Scale 1-3)) 30 Days Qty: 25 0RF Protocol: Apply to: Apply to: knees B/L citalopram 40 mg tablet 40 mg PO DAILY 30 Days Qty: 30 0RF (DME) FreeStyle Lite Strips Strip 1 strip miscellaneous QID 30 Days Qty: 400 0RF diazepam 2 mg tablet 2 tab PO DAILY PRN (Reason: Anxiety) 30 Days Qty: 60 0RF lisinopril 10 mg tablet 10 mg PO DAILY 30 Days Qty: 30 0RF hydroxyzine HCl 25 mg tablet 1 tab PO TID PRN (Reason: Anxiety) 30 Days Qty: 90 0RF hydroxyzine HCl 25 mg tablet 25 mg PO BID 30 Days Qty: 60 0RF pravastatin 20 mg tablet 20 mg PO DAILY 30 Days Qty: 30 0RF lamotrigine 100 mg tablet 1 tab PO BID 30 Days Qty: 60 0RF insulin aspart U-100 100 unit/mL (3 mL) insulin pen See Rx Instructions subcut TID 30 Days Qty: 45 3RF Rx Instructions: 14 units with meals, plus 2 units for blood sugars over 200 subcut 3 times a day; (DME) lancing device [Adjustable Lancing Device] Misc See Rx Instructions .ROUTE .MEDSUPPLY Qty: 1 0RF Rx Instructions: As directed (DME) pen needle, diabetic [BD Ultra-Fine Arminda Pen Needle] 32 gauge x 5/32 needle See Rx Instructions .ROUTE .MEDSUPPLY Qty: 150 0RF Rx Instructions: As directed five times a day (DME) lancets [FreeStyle Lancets] 28 gauge misc See Rx Instructions .ROUTE .MEDSUPPLY Qty: 400 3RF Rx Instructions: As directed four times a day insulin degludec 200 unit/mL (3 mL) insulin pen 45 unit subcut DAILY 30 Days Qty: 6.75 0RF Trulicity 1.5 mg/0.5 mL pen injector 1.5 mg subcut QWEEK 30 Days Qty: 2 0RF (DME) FreeStyle Lite Strips Strip See Rx Instructions .Route Qty: 100 0RF Rx Instructions: As directed thrice daily Referrals: Angela New MD [Primary Care Provider] - Print Language: Amharic
--- NOTE | 2022-07-31 13:06 | PC.NURSE ---
care team has arranged a lyft for the patient to discharge to [place], patient is getting dressed and will discharge
== END 2022-07-31 13:17 | disposition home or self-care (01) ==
PROVIDERS: Emergency Provider Emergency Medicine Emergency Medical Services; PCP Internal Medicine
DX: F33.1 Major depressive disorder, recurrent, moderate (principal); R45.851 Suicidal ideations; Z79.899 Other long term (current) drug therapy
CPT/HCPCS: 99284

== ENCOUNTER 2022-08-07 16:10 | Emergency (ER) | payer OTHER, SELFPAY ==
[2022-08-07 16:38] VITALS: BP 129/51; PULSE 96; RESP 20; TEMP 37.2; O2SAT 94; BMI 42.5
--- NOTE | 2022-08-07 16:42 | ED_ITS ---
HPI - General Adult General Chief complaint: General Medical <Flakito Galindo MD - Last Filed: 08/07/22 16:43> Stated complaint: left hip pain and lumps in both armpits <Flakito Galindo MD - Last Filed: 08/07/22 16:43> Time Seen by Provider: 08/07/22 17:13 <Flakito Galindo MD - Last Filed: 08/07/22 16:43> Source: patient and family <Kaur Quintero NP - Last Filed: 08/07/22 19:25> Mode of arrival: ambulatory <Kaur Quintero NP - Last Filed: 08/07/22 19:25> Limitations: no limitations <Kaur Quintero NP - Last Filed: 08/07/22 19:25> History of Present Illness HPI narrative: 57-year-old female with a past medical history of major depressive diso rder recently discharged from inpatient psych last week, PTSD, SI, uncontrolled DM 2, hypertension, anxiety, s/p gastric bypass, and status post lumpectomy of left breast for breast cancer presents to the emergency department, with her , for complaints of unchanged, chronic sciatic nerve pain, 'lumps' in both armpits, and symptoms of a yeast infection. Pt states she was treated for a yeast infection while in the psychiatric unit, medication unknown with minor improvement in symptoms. She continues to have white thick vaginal discharge. She also states she was given Levaquin for the ?lumps? in her axilla with initial improvement in the left axilla. She states the lump in the left axilla has not changed in the last week, however; the lump in the right axilla has grown significantly over the past 2 days. She endorses severe pain on palpation of both axilla. She denies any fever, chills, or drainage from the axilla. Regarding her back pain, she states she has known sciatic nerve pain, degenerative disc disease, is for other issues with her back. She denies any loss of bowel or bladder, numbness or tingling, or new weakness. <Kaur Quintero NP - Last Filed: 08/07/22 19:25> Onset (ago): day(s) <Kaur Quintero NP - Last Filed: 08/07/22 19:25> Associated symptoms: denies other symptoms <Kaur Quintero NP - Last Filed: 08/07/22 19:25> Treatments prior to arrival: none <Kaur Quintero NP - Last Filed: 08/07/22 19:25> Related Data Home medications: Previous Rx's Medication Instructions Recorded blood sugar diagnostic (FreeStyle #100 ea 07/30/22 Lite Strips) blood sugar diagnostic (FreeStyle #400 strips 07/30/22 Lite Strips) capsaicin 0.025 % topical cream 1 appl topical QID PRN Pain, Mild 07/30/22 (Pain Scale 1-3) 30 days #25 grams citalopram 40 mg tablet 40 mg PO DAILY 30 days #30 tabs 07/30/22 diazepam 2 mg tablet 2 tab PO DAILY PRN Anxiety 30 days 07/30/22 #60 tabs dulaglutide 1.5 mg/0.5 mL 1.5 mg (0.5 mL) subcut QWEEK 30 07/30/22 subcutaneous pen injector days #2 mL (Trulicity) hydroxyzine HCl 25 mg tablet 1 tab PO TID PRN Anxiety 30 days 07/30/22 #90 tabs hydroxyzine HCl 25 mg tablet 25 mg PO BID 30 days #60 tabs 07/30/22 insulin aspart U-100 100 unit/mL See Rx Instructions subcut TID 30 07/30/22 (3 mL) subcutaneous pen days #45 mL insulin degludec 200 unit/mL (3 45 unit (0.225 mL) subcut DAILY 30 07/30/22 mL) subcutaneous pen days #6.75 mL lamotrigine 100 mg tablet 1 tab PO BID 30 days #60 tabs 07/30/22 lancets 28 gauge (FreeStyle #400 ea 07/30/22 Lancets) lancing device (Adjustable Lancing #1 ea 07/30/22 Device) levofloxacin 500 mg tablet 500 mg PO Q24H 6 days #6 tabs 07/30/22 lisinopril 10 mg tablet 10 mg PO DAILY 30 days #30 tabs 07/30/22 pen needle, diabetic 32 gauge x #150 ea 07/30/22 (BD Ultra-Fine Arm[place] Pen Needle) pravastatin 20 mg tablet 20 mg PO DAILY 30 days #30 caps 07/30/22 quetiapine 200 mg tablet 200 mg PO BEDTIME 30 days #30 tabs 07/30/22 quetiapine 50 mg tablet 50 mg PO BEDTIME PRN insomnia 30 07/30/22 days #30 tabs doxycycline hyclate 100 mg capsule 100 mg PO BID 7 days #14 caps 08/07/22 fluconazole 150 mg tablet 150 mg PO DAILY #2 tabs 08/07/22 (Diflucan) <Flakito Galindo MD - Last Filed: 08/07/22 16:43> Allergies/adverse reactions: Allergies Allergy/AdvReac Type Severity Reaction Status Date / Time codeine [Codeine] Allergy Intermediate ITCH Verified 03/27/22 10:41 naproxen [From Naprosyn] Allergy Intermediate SWELLING Verified 03/27/22 10:41 morphine [Morphine] Allergy Mild ITCHING Verified 03/27/22 10:41 sumatriptan [From Imitrex] Allergy Mild HEADACHE Verified 03/27/22 10:41 WORSENS doxycycline Allergy Unknown unknown Verified 03/27/22 10:41 gabapentin Allergy Unknown Unknown Verified 03/27/22 10:41 Penicillins [PENICILLINS] Allergy Unknown HIVES Verified 03/27/22 10:41 Sulfa (Sulfonamide Allergy Unknown N/V Verified 03/27/22 10:41 Antibiotics) [SULFA (SULFONAMIDE ANTIBIOTICS)] sulfamethoxazole Allergy Unknown N/V Verified 03/27/22 10:41 [From BACTRIM] trimethoprim [From BACTRIM] Allergy Unknown N/V Verified 03/27/22 10:41 pregabalin AdvReac Unknown Unknown Verified 03/27/22 10:41 <Flakito Galindo MD - Last Filed: 08/07/22 16:43> Review of Systems Review of Systems: Yes all other systems are reviewed and are negative <Kaur Quintero NP - Last Filed: 08/07/22 19:25> Constitutional: Constitutional: Reports no additional constitutional complaints, Denies chills, Denies fever(s), Denies frequent falls, Denies headache(s), Denies weight gain and Denies weight loss <Kaur Quintero NP - Last Filed: 08/07/22 19:25> Eyes: Eyes: Reports no additional eye complaints and Denies change in vision <Kaur Mcdonalduciennik, WELDING LEAD BURNER - Last Filed: 08/07/22 19:25> ENT: Reports system reviewed and no additional complaints, except as documented, Reports Normal hearing present, Denies dizziness and Denies headache(s) <Kaur Pluciennik, WELDING LE[employer] BURNER - Last Filed: 08/07/22 19:25> Cardiovascular: Cardiovascular: Reports no additional cardiovascular complaints, Denies chest pain and Denies dyspnea <Kaur Pluciennik, WELDING LEAD BURNER - Last Filed: 08/07/22 19:25> Respiratory: Respiratory: Reports no additional respiratory complaints, Denies chest congestion, Denies cough and Denies dyspnea <Kaur Pluciennik, WELDING LEAD BURNER - Last Filed: 08/07/22 19:25> Gastrointestinal: Gastrointestinal: Reports no additional gastrointestinal complaints, Denies abdominal pain, Denies diarrhea, Denies nausea and Denies vomiting <Kaur Pluciennik, WELDING LEAD BURNER - Last Filed: 08/07/22 19:25> Genitourinary: Genitourinary: Reports no additional female genitourinary complaints, Reports vaginal discharge (white thick) and Reports vaginal pruritus <Kaur Pluciennik, WELDING LEAD BURNER - Last Filed: 08/07/22 19:25> Musculoskeletal: Musculoskeletal: Reports no additional musculoskeletal complaints, Denies abnormal gait, Reports back pain, Denies numbness and Denies tingling <Kaur Pluciennik, WELDING LEAD BURNER - Last Filed: 08/07/22 19:25> Integumentary/Breasts: Skin/Breast: Reports system reviewed and no additional complaints, except as docu <Kaur Pluciennik, W[employer]ING LE[employer] BURNER - Last Filed: 08/07/22 19:25> Neurologic: Reports system reviewed and no additional complaints, except as documented, Reports Normal hearing present, Denies abnormal gait, Denies dizziness, Denies frequent falls, Denies headache(s), Denies numbness and Denies tingling <Kaur Pluciennik, WELD[employer] LE[employer] BURNER - Last Filed: 08/07/22 19:25> Psychiatric: Psychiatric: Reports no additional psychiatric complaints, Denies depression, Denies hopelessness, Denies homicidal ideation and Denies suicidal ideation <Kaur Pluciennik, WELDING LE[employer] BURNER - Last Filed: 08/07/22 19:25> Endocrine: Endocrine: Reports no additional endocrine complaints, Denies polyphagia, Denies polydipsia and Denies polyuria <Kaur Quintero NP - Last Filed: 08/07/22 19:25> [facility] Past Medical History Attestation statement: The following information was validated with the patient. <Kaur Quintero NP - Last Filed: 08/07/22 19:25> Source: old records reviewed and obtained from family <Kaur Quintero NP - Last Filed: 08/07/22 19:25> Medical History: Medical History Anxiety, generalized Diabetes type 2, uncontrolled Headache syndrome Hypertension, essential Lipid disorder Long-term current use of insulin for diabetes mellitus Neck pain Suicidal ideation <Flakito Galindo MD - Last Filed: 08/07/22 16:43> Surgical History: Surgical History Hernia History of appendectomy History of colectomy History of lumpectomy of left breast History of repair of left rotator cuff History of repair of right rotator cuff Hx of cholecystectomy <Flakito Galindo MD - Last Filed: 08/07/22 16:43> Family History Family History: Family History Father No problems noted. Mother CHF (congestive heart failure) HTN (hypertension) Type 2 diabetes mellitus Bone cancer Brother No problems noted. Brother No problems noted. <Flakito Galindo MD - Last Filed: 08/07/22 16:43> Social History Social History: Social History Household Members: None Housing: Homeless Do you presently have visiting nurse or other home services: No Alcohol intake: never Patient Tobacco Use Status: Never used Tobacco Second Hand Smoke Exposure: Yes Advance Directives: No Advance Directives Information Provided: No service: No Current occupational status: disabled Sexual orientation: Straight/Heterosexual Cognitive needs: No Hearing needs: No Vision needs: No <Flakito Galindo MD - Last Filed: 08/07/22 16:43> Physical Exam ED Vital Signs: Vital Signs - 24 hr 08/07/22 16:38 Temperature 98.9 F Pulse Rate 96 Respiratory Rate 20 Blood Pressure 129/51 L Pulse Oximetry 94 Oxygen Delivery Method Room Air BMI result Body Mass Index 42.5 <Flakito Galindo MD - Last Filed: 08/07/22 16:43> Vital Signs - 24 hr 08/07/22 16:38 Temperature 98.9 F Pulse Rate 96 Respiratory Rate 20 Blood Pressure 129/51 L Pulse Oximetry 94 Oxygen Delivery Method Room Air BMI result Body Mass Index 42.5 <Kaur Quintero NP - Last Filed: 08/07/22 19:25> Const General: cooperative, no acute distress, alert and awake <Kaur Quintero NP - Last Filed: 08/07/22 19:25> Nutritional Appearance: well nourished <Kaur Quintero NP - Last Filed: 08/07/22 19:25> Orientation/consciousness: patient oriented x3 <Kaur Quintero NP - Last Filed: 08/07/22 19:25> Limitations: no limitations <Kaur Quintero NP - Last Filed: 08/07/22 19:25> HENMT Head: Yes normal to inspection and Yes atraumatic <Kaur Quintero NP - Last Filed: 08/07/22 19:25> Ears: hearing grossly normal bilaterally and external ears normal <Kaur Quintero NP - Last Filed: 08/07/22 19:25> General nose exam: Normal external nose present <Kaur Quintero NP - Last Filed: 08/07/22 19:25> Face and sinus: Yes normal facial exam <Kaur Quintero NP - Last Filed: 08/07/22 19:2 5> Mouth: Normal oral and palatal mucosa present <Kaur Quintero NP - Last Filed: 08/07/22 19:25> Eyes General: appearance normal, both eyes and all related structures <Kaur Quintero NP - Last Filed: 08/07/22 19:25> Alignment and Position: alignment normal <Kaur Quintero NP - Last Filed: 08/07/22 19:25> Periorbital: periorbital findings normal <Kaur Quintero [employer] BURNER - Last Filed: 08/07/22 19:25> Eyelids: Yes eyelids normal <Kaur Quintero [employer]URNER - Last Filed: 08/07/22 19:25> Conjunctivae: conjunctivae normal <Kuar Quintero, WELDING LEAD BURNER - Last Filed: 08/07/22 19:25> Sclerae: sclerae normal <Kaur Quintero, WELDING LE[employer] BURNER - Last Filed: 08/07/22 19:25> Pupils: Equal, round and reactive pupils present <Kaur Quintero, WELDING LEAD BURNER - Last Filed: 08/07/22 19:25> EOM: EOMs intact bilaterally <Kaur Quintero, WELDING LEAD BURNER - Last Filed: 08/07/22 19:25> Neck Neck: Yes normal visual inspection and Yes full ROM <Kaur Quintero [employer]URNER - Last Filed: 08/07/22 19:25> Chest Chest palpation & inspection: normal inspection of the chest <Kaur Quintero [employer]URNER - Last Filed: 08/07/22 19:25> Breast/axilla inspection: abnormal inspection of the axilla (Bilateral swelling noted in axilla Rt > Lt) <Kaur Quintero [employer]URNER - Last Filed: 08/07/22 19:25> Breast/axilla palpation: abnormal palpation of the axilla (bilateral fluctuance in bilateral axilla Rt > Lt) <Kaur Quintero [employer] LE[employer] BURNER - Last Filed: 08/07/22 19:25> Resp Effort & Inspection: normal respiratory effort, able to speak in complete sentences, not labored and symmetric chest movement <Kaur Quintero [employer]ELD[employer] LE[employer]URNER - Last Filed: 08/07/22 19:25> Auscultation: clear to auscultation bilaterally, no crackles, no rhonchi and no wheezes <Kaur Quintero [employer] LE[employer]URNER - Last Filed: 08/07/22 19:25> Cardio Rate: regular rate <Kaur Quintero, WELDING LEAD BURNER - Last Filed: 08/07/22 19:25> Rhythm: regular rhythm <Kaur Quintero [employer]ELDING LE[employer] BURNER - Last Filed: 08/07/22 19:25> GI Inspection: Yes normal to inspection <Kaur Leon, WELDING LE[employer] BURNER - Last Filed: 08/07/22 19:25> Auscultation: normal bowel sounds <Kaur Harryucjace, WELDING LEAD BURNER - Last Filed: 08/07/22 19:25> General: Yes no CVA tenderness <Kaur Harryucjace, WELDING LEAD BURNER - Last Filed: 08/07/22 19:25> External Female Exam: normal external appearance <Kaur Leon, WELDING LEAD BURNER - Last Filed: 08/07/22 19:25> Speculum Exam - Cervix: Other cervical findings present (deferred at pt request) <Kaur Harryucjace, WELDING LEAD BURNER - Last Filed: 08/07/22 19:25> Back/Spine/Pelvis Back: no CVA tenderness <Kaur Pluciennik, WELDING LEAD BURNER - Last Filed: 08/07/22 19:25> Cervical Spine: cervical ROM normal <Kaur Harryucjace, WELDING LEAD BURNER - Last Filed: 08/07/22 19:25> Thoracic/Lumbar Spine: thoraco-lumbar ROM normal <Kaur Pluciennik, WELDING LEAD BURNER - Last Filed: 08/07/22 19:25> Skin Lesions: lesion noted (bilateral axilla) <Kaur Plucienjosh, WELDING LEAD BURNER - Last Filed: 08/07/22 19:25> Rashes: no rashes <Kaur Harryucjace, WELDING LEAD BURNER - Last Filed: 08/07/22 19:25> Neuro General: patient oriented x3 and moves all extremities <Kaur Leon, WELDING LEAD BURNER - Last Filed: 08/07/22 19:25> Cranial nerves: Yes Equal, round and reactive pupils present and Yes Normal hearing present <Kaur Plucjace, WELDING LEAD BURNER - Last Filed: 08/07/22 19:25> Cognition (Neuro): normal cognition <Kaur Pluciennik, WELDING LEAD BURNER - Last Filed: 08/07/22 19:25> Gait exam (Neuro): Antalgic gait present <Kaur Plucjace, WELDING LEAD BURNER - Last Filed: 08/07/22 19:25> Motor exam (neuro): 5/5 motor strength present throughout <Kaur Pluciennik, WELDING LEAD BURNER - Last Filed: 08/07/22 19:25> Sensory Exam: Normal double simultaneous stimulation for sensation <Kaurrajiv Quintero NP - Last Filed: 08/07/22 19:25> Extrem General: Yes normal to inspection, Yes full ROM and Yes capillary refill normal <Kaurrajiv Quintero [employer]ELD[employer] LE[employer] BURNER - Last Filed: 08/07/22 19:25> Psych Appearance: grossly normal <Kaur Quintero [employer]ELD[employer] LE[employer] BURNER - Last Filed: 08/07/22 19:25> Mental Status: mental status grossly normal <Kaur Quintero [employer]ELD[employer] LE[employer] BURNER - Last Filed: 08/07 19:25> Speech and movement: Normal speech and movement present <Kaur Quintero [employer]ELD[employer] BURNER - Last Filed: 08/07/22 19:25> Affect: normal affect <Kaur Quintero WELD[employer] LE[employer] BURNER - Last Filed: 08/07/22 19:25> Attitude: cooperative <Kaur Quintero [employer]ELD[employer] BURNER - Last Filed: 08/07/22 19:25> Thought process: Normal thought process present <Kaur Quintero [employer]ELD[employer] LE[employer] BURNER - Last Filed: 08/07/22 19:25> Thought content: Normal thought content present <Kaur Quintero [employer]ELD[employer] BURNER - Last Filed: 08/07/22 19:25> Insight: Good insight present (Psych) <Kaur Quintero [employer] BURNER - Last Filed: 08/07/22 19:25> Judgement: Good judgement present (Psych) <Kaur Quintero NP - Last Filed: 08/07/22 19:25> Course Reevaluation(s) Reevaluation #1: 57 yo female with PMH of SI, DM and obesity presents c/o multiple complaints including left hip pain and possible abscesses under the arm. Patient not examined in triage. <Flakito Galindo MD - Last Filed: 08/07/22 16:43> Time: 16:43 <Flakito Galindo MD - Last Filed: 08/07/22 16:43> Procedures Procedure Narrative Procedure Narrative: Left axilla with noted fluctuance and pain. Axilla cleansed with Betadine, anesthetized with 7 ml lidocaine 1% with good effect. 1.5 cm incision made with evacuation of roughly 15 ml of purulent drainage obtained. Incision packed with iodoform. Right axilla with noted fluctuance and pain. Axilla cleansed with Betadine, anesthetized with lidocaine 1% with good effect. 1.5 cm incision made with evaluation of roughly 20-30 ml of purulent drainage obtained. Incision packed with iodoform. Gauze dressings placed at both axilla to collect remaining drainage. Patient tolerated well. <Kaur Quintero NP - Last Filed: 08/07/22 19:25> Abscess I/D Site: other (axilla) <Kaur Quintero NP - Last Filed: 08/07/22 19:25> Side (if applicable): left and right (bilateral) <Kaur Quintero NP - Last Filed: 08/07/22 19:25> Sedation/analgesia: none <Kaur Quintero NP - Last Filed: 08/07/22 19:25> Local Anesthetic: lidocaine 1% <Kaur Quintero NP - Last Filed: 08/07/22 19:25> Amount of anesthesia used (mL): 15 <Kaur Quintero NP - Last Filed: 08/07/22 19:25> Technique: incised with blade <Kaur Quintero NP - Last Filed: 08/07/22 19:25> Amount of fluid expressed (mL): 15 <Kaur Quintero NP - Last Filed: 08/07/22 19:25> Sent for culture/gram staining?: No <Kaur Quintero NP - Last Filed: 08/07/22 19:25> Irrigation: Yes <Kaur Quintero NP - Last Filed: 08/07/22 19:25> Packing used?: iodoform <Kaur Quintero NP - Last Filed: 08/07/22 19:25> Complications: pain <Kaur Quintero NP - Last Filed: 08/07/22 19:25> Medical Decision Making MDM Narrative Medical decision making narrative: 57-year-old female presents to the ED, with her , with complaints chronic back pain, vaginal itching with white thic vaginal discharge, and painful, fluctuant abscesses and bilateral axilla. HPI and physical exam are inconsistent with cauda equina, epidural abscess, or disc herniation as patient has no loss of bowel or bladder, numbness or tingling in extremities, she has no history of IVDU or immunocompromised, and states she is moving at her baseline. She has chronic back pain related to disc degeneration. 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 Educated to follow-up with her primary care provider concerning chronic back pain. Vaginal exam is deferred a this time at patient's request. As patient was recently diagnosed with vaginal candidiasis, complaint most likely continued vaginal candidiasis and less likely to be bacterial vaginosis based on symptoms Fluconazole 150 mg ordered for today, to be repeated on day 3 of symptoms do not subside. Bilateral axilla noted for areas of large fluctuance with pain on palpation. Bilateral axilla prepped and anesthetized, and incision made with purulent fluid obtained and iodoform packing placed. Patient tolerated procedure well. Doxycycline 100 mg b.i.d. x7 days ordered for antibiotic coverage. Allergies reviewed with patient as doxycycline is a documented sourav rgy, she states she does not know what the reaction is or when she would have had a reaction. Physical exam and results discussed with patient and family with no unanswered questions at this time. Educated to present to the emergency department with hives, difficulty breathing, nausea, vomiting. Educated to return to the emergency department in 48 hours for removal of packing and further assessment of axilla wounds. Educated to present to the emergency department with shortness of breath, chest pain, fever, chills, new numbness or weakness, loss of bowel or bladder function. Recommended to follow-up the primary care provider for further recommendations and care. <Kaur Quintero NP - Last Filed: 08/07/22 19:25> Discharge Plan Discharge Clinical Impression: Axillary abscess, Vaginal yeast infection <Flakito Galindo MD - Last Filed: 08/07/22 16:43> Patient Disposition: Home, Self-Care <Flakito Galindo MD - Last Filed: 08/07/22 16:43> Instructions: Yeast Infection (ED), Abscess (ED), Abscess Follow-up (ED), Abscess Incision and Drainage (DC), Incision and Drainage (ED) <Flakito Galindo MD - Last Filed: 08/07/22 16:43> Additional Instructions: Right and left armpit incisions made with drainage of purulence drainage. Bilateral armpits packed with iodoform with gauze dressings applied to collect drainage. Please return to the emergency department in 48 hours to have packing removed from bilateral armpits <Flakito Galindo MD - Last Filed: 08/07/22 16:43> Prescriptions: New fluconazole [Diflucan] 150 mg tablet 150 mg PO DAILY Qty: 2 0RF Rx Instructions: Take one pill today 08/07/22 and repeat in 3 days if you still have symptoms of vaginal yeast infection doxycycline hyclate 100 mg capsule 100 mg PO BID 7 Days Qty: 14 0RF No Action quetiapine 200 mg Tablet 200 mg PO BEDTIME 30 Days Qty: 30 0RF levofloxacin 500 mg Tablet 500 mg PO Q24H 6 Days Qty: 6 0RF quetiapine 50 mg Tablet 50 mg PO BEDTIME PRN (Reason: insomnia) 30 Days Qty: 30 0RF capsaicin 0.025 % Cream 1 appl topical QID PRN (Reason: Pain, Mild (Pain Scale 1-3)) 30 Days Qty: 25 0RF Protocol: Apply to: Apply to: knees B/L citalopram 40 mg tablet 40 mg PO DAILY 30 Days Qty: 30 0RF (DME) FreeStyle Lite Strips Strip 1 strip miscellaneous QID 30 Days Qty: 400 0RF diazepam 2 mg tablet 2 tab PO DAILY PRN (Reason: Anxiety) 30 Days Qty: 60 0RF lisinopril 10 mg tablet 10 mg PO DAILY 30 Days Qty: 30 0RF hydroxyzine HCl 25 mg tablet 1 tab PO TID PRN (Reason: Anxiety) 30 Days Qty: 90 0RF hydroxyzine HCl 25 mg tablet 25 mg PO BID 30 Days Qty: 60 0RF pravastatin 20 mg tablet 20 mg PO DAILY 30 Days Qty: 30 0RF lamotrigine 100 mg tablet 1 tab PO BID 30 Days Qty: 60 0RF insulin aspart U-100 100 unit/mL (3 mL) insulin pen See Rx Instructions subcut TID 30 Days Qty: 45 3RF Rx Instructions: 14 units with meals, plus 2 units for blood sugars over 200 subcut 3 times a day; (DME) lancing device [Adjustable Lancing Device] Misc See Rx Instructions .ROUTE .MEDSUPPLY Qty: 1 0RF Rx Instructions: As directed (DME) pen needle, diabetic [BD Ultra-Fine [place] Pen Needle] 32 gauge x 5/32 needle See Rx Instructions .ROUTE .MEDSUPPLY Qty: 150 0RF Rx Instructions: As directed five times a day (DME) lancets [FreeStyle Lancets] 28 gauge misc See Rx Instructions .ROUTE .MEDSUPPLY Qty: 400 3RF Rx Instructions: As directed four times a day insulin degludec 200 unit/mL (3 mL) insulin pen 45 unit subcut DAILY 30 Days Qty: 6.75 0RF Trulicity 1.5 mg/0.5 mL pen injector 1.5 mg subcut QWEEK 30 Days Qty: 2 0RF (DME) FreeStyle Lite Strips Strip See Rx Instructions .Route Qty: 100 0RF Rx Instructions: As directed thrice daily <Flakito Galindo MD - Last Filed: 08/07/22 16:43> Referrals: Angela New MD [Primary Care Provider] - <Flakito Galindo MD - Last Filed: 08/07/22 16:43> Print Language: Arabic <Flakito Galindo MD - Last Filed: 08/07/22 16:43>
== END 2022-08-07 19:08 | disposition home or self-care (01) ==
PROVIDERS: Emergency Provider Emergency Medicine; PCP Internal Medicine
DX: L02.412 Cutaneous abscess of left axilla (principal); M79.2 Neuralgia and neuritis, unspecified; M54.2 Cervicalgia; M79.605 Pain in left leg; M79.604 Pain in right leg; E11.9 Type 2 diabetes mellitus without complications; M54.50 Low back pain, unspecified; Z98.84 Bariatric surgery status; Z79.899 Other long term (current) drug therapy
CPT/HCPCS: 10060; 99282; 99284

== ENCOUNTER 2023-01-03 10:35 | Outpatient (REF) | payer OTHER, SELFPAY ==
[2023-01-03 14:11] LABS: MANUAL DIFF FLAG NO
[2023-01-03 14:16] LABS: Basophils Absolute Auto 0.1 X10*3/uL (0.0-0.2); Basophils Percent Auto 0.7 % (0-2); Eosinophils Absolute Auto 0.2 X10*3/uL (0.0-0.4); Eosinophils Percent Auto 2.3 % (0-4); Hematocrit 40.2 % (37.0-47.0); Imm Gran Abs Auto 0.04 X10*3/uL (0.00-0.03); Imm Gran Pct Auto 0.5 % (0.0-0.4); Lymphocytes Absolute Auto 1.8 X10*3/uL (1.2-4.9); Lymphocytes Percent Auto 24.4 % (20-40); Mean Corpuscular HGB Conc 32.3 g/dl (31.0-35.0); Mean Corpuscular Volume 92.6 fL (80.0-98.0); Mean Platelet Volume 10.5 fL (9.4-12.3); Monocytes Absolute Auto 0.6 X10*3/uL (0.1-1.2); Monocytes Percent Auto 8.1 % (2-11); Neutrophils Absolute Auto 4.7 x10*3/uL (2.0-8.3); Platelet Count 327 X10*3/uL (160-400); Red Blood Count 4.34 X10*6/uL (4.20-5.50); Red Cell Distribution Width 12.7 % (11.0-16.0); White Blood Count 7.3 X10*3/uL (4.8-10.8)
[2023-01-03 14:46] LABS: Alanine Aminotransferase 22 U/L (0-31); Albumin Level 3.6 g/dL (3.5-5.0); Alkaline Phosphatase 105 U/L (39-117); Anion Gap 13 (12-20); Aspartate Amino Transferase 14 U/L (5-31); Bilirubin Total 0.3 mg/dL (0.0-1.0); Blood Urea Nitrogen 13 mg/dL (9-16); Carbon Dioxide 24 mmol/L (22-29); Chloride 106 mmol/L (96-108); Cholesterol 176 mg/dL; Estimated Glomerular Filt Rate > 60; Glucose Fasting 275 mg/dL (60-99); Glucose Random 274 mg/dL (60-115); HDL Cholesterol 50 mg/dL; LDL Cholesterol Calculated 89 mg/dl; Potassium 4.2 mmol/L (3.3-5.1); Sodium 139 mmol/L (135-145); Total Protein 6.5 g/dL (6.5-8.0); Triglycerides 189 mg/dL
[2023-01-03 14:48] LABS: Estimated Average Glucose 263 mg/dL; Hemoglobin A1c % 10.8 %
[2023-01-03 15:01] LABS: TSH reflex Free T4 0.99 uIU/mL (0.32-4.0)
[2023-01-03 15:16] LABS: Creatinine Urine 207.05 mg/dL; Microalbum/Creatinine Ratio Ur 11.1 ug/mg cr
[2023-01-06 09:54] LABS: LDL Cholesterol Direct 89 mg/dL (<100)
== END 2023-01-03 10:36 | disposition home or self-care (01) ==
LOC: HO.HMGCLDS 10:35
PROVIDERS: PCP Internal Medicine; Visit Provider Internal Medicine
DX: E11.9 Type 2 diabetes mellitus without complications (principal); E78.9 Disorder of lipoprotein metabolism, unspecified; F33.1 Major depressive disorder, recurrent, moderate; I10 Essential (primary) hypertension; M25.473 Effusion, unspecified ankle; Z79.4 Long term (current) use of insulin
CPT/HCPCS: 36415; 80053; 80061; 82043; 83036; 83721; 83880; 84443; 85025

== ENCOUNTER → 2023-07-29 09:23 | Outpatient (BNVA) | payer OTHER, SELFPAY | PROVIDERS: PCP Internal Medicine; Visit Provider Internal Medicine Endocrinology, Diabetes & Metabolism | DX: E11.65 Type 2 diabetes mellitus with hyperglycemia (principal) | CPT/HCPCS: 82947; 83036; 99212 ==

== ENCOUNTER 2023-07-29 10:02 | Outpatient (AMB) | payer OTHER, SELFPAY ==
--- NOTE | 2023-07-29 09:29 | A.OFFVIS_ITS ---
Intake Vital Signs 07/29/23 09:33 Height 5 ft 3 in Weight 258 lb 9.636 oz BMI 45.8 BP 140/60 H Blood Pressure Location Lt brachial Position Sitting Pulse 95 Intake Visit Reasons: DM/ [place] Intake Note: Patient presents today to follow up on Type 2 Diabetes Mellitus. Last Diabetic Eye exam:2021 Last Podiatry Visit: None Random Glucose: 341 mg/dl HgA1C:11.4% Coin Purse Framer Required: No Accompanied by: Self / Same As Patient Allergies codeine [Codeine] Allergy (Intermediate, Verified 07/29/23 10:09) ITCH naproxen [From Naprosyn] Allergy (Intermediate, Verified 07/29/23 10:09) SWELLING morphine [Morphine] Allergy (Mild, Verified 07/29/23 10:09) ITCHING sumatriptan [From Imitrex] Allergy (Mild, Verified 07/29/23 10:09) HEADACHE WORSENS doxycycline Allergy (Unknown, Verified 07/29/23 10:09) unknown gabapentin Allergy (Unknown, Verified 07/29/23 10:09) Unknown Penicillins [PENICILLINS] Allergy (Unknown, Verified 07/29/23 10:09) HIVES Sulfa (Sulfonamide Antibiotics) [SULFA (SULFONAMIDE ANTIBIOTICS)] Allergy (Unknown, Verified 07/29/23 10:09) N/V sulfamethoxazole [From BACTRIM] Allergy (Unknown, Verified 07/29/23 10:09) N/V trimethoprim [From BACTRIM] Allergy (Unknown, Verified 07/29/23 10:09) N/V pregabalin Adverse Reaction (Unknown, Verified 07/29/23 10:09) Unknown Medication List - Last Reconciled 07/29/23 by Flakito Myers MD alcohol swabs topically; clean skin before injecting insulin three times a day blood sugar diagnostic (OneTouch Ultra Test strips) Use to check blood sugar 3 times daily: fasting and before lunch/dinner blood-glucose meter (OneTouch Ultra2 Meter) Use to check blood sugar 3 times daily: fasting and before lunch/dinner dextromethorphan polistirex ER (Delsym 12 hour) 10 mL PO Q12H PRN 10 days dulaglutide (Trulicity) 1.5 mg (0.5 mL) subcut QWEEK 84 days flash glucose scanning reader (FreeStyle Jn 2 [place]) As directed flash glucose sensor (FreeStyle Jn 2 Sensor kit) As directed change every 14 days hydroxyzine HCl 25 mg PO BID 30 days insulin aspart U-100 14 units with meals, plus 2 units for blood sugars over 200 subcut 3 times a day; 30 days insulin degludec 45 units (0.225 mL) subcut DAILY 30 days lamotrigine 1 tab PO BID 30 days lancets (OneTouch UltraSoft Lancets) Use to check blood sugar 3 times daily: fasting and before lunch/dinner lancing device (Adjustable Lancing Device) As directed levofloxacin 500 mg PO Q24H 6 days lisinopril 10 mg PO DAILY 90 days nirmatrelvir-ritonavir 300 mg (150 mg x 2)-100 mg take TWO 150 mg tablets of nirmatrelvir with ONE 100 mg tablet of ritonavir twice daily for 5 days PO pen needle, diabetic (BD Ultra-Fine [place] Pen Needle) As directed five times a day pravastatin 20 mg PO DAILY 90 days quetiapine 50 mg PO BEDTIME PRN 30 days quetiapine 200 mg PO BEDTIME 30 days HPI HPI Comments History of Present Illness Details Patient is 58 yo female with DM type 2 diagnosed in 1996 who presents for tele health visit for management of diabetes. Patient was last seen 09/25/20 by Aura Nelson NP Past medical history: DM2, HTN, hx breast cancer Micro and macrovascular complications: no known Diabetes medications: Tresiba 45 units, NovoLog 14 units with meals plus 2 units for blood sugars over 200, Trulicity 1.5mg/week Symptoms reported: denies numbness, tingling, cramping in lower extremities Hypoglycemia: denies Hyperglycemia: + polyuria. Blood glucose monitoring: Gluometer downloaded show no POCs Exercise: Walking as tolerated but bone on bone on both knees Interventional Neuroradiologist: no Last dental exam: July 2019, goes every 6 months Last ophthalmology evaluation: last yr . Needs to schedule No family hx of DM PFSH Medical History Anxiety, generalized Diabetes type 2, uncontrolled Headache syndrome Hypertension, essential Lipid disorder Long-term current use of insulin for diabetes mellitus Neck pain Suicidal ideation Surgical History History of lumpectomy of left breast History of repair of right rotator cuff History of repair of left rotator cuff History of appendectomy Hernia Hx of cholecystectomy History of colectomy Family History Father No problems noted. Mother CHF (congestive heart failure) HTN (hypertension) Type 2 diabetes mellitus Bone cancer Brother No problems noted. Brother No problems noted. Social History Household Members: None Housing: Homeless Do you presently have visiting nurse or other home services: No Alcohol intake: never Patient Tobacco Use Status: Never used Tobacco e-Cigarette/Vaping Use: Never Used Second Hand Smoke Exposure: Yes service: No Current occupational status: disabled Sexual orientation: Straight/Heterosexual Cognitive needs: No Hearing needs: No Vision needs: No Physical Exam Vital Signs: Last Vital Signs Pulse 95 07/29/23 09:33 BP 140/60 H 07/29/23 09:33 BMI result Body Mass Index 45.8 Absence of Cushingoid features. Absence of acromegalic features. Neck exam reveals nl size thyroid about 15 gms. No thyroid nodules palpable. No carotid bruits present. Lungs CTA. Heart S1 S2, Reg R/R. No M/R/ G. Skin exam reveals absence of vitiligo or acanthosis nigricans. Abdominal exam reveals Soft NT/ND with NA BS. No organomegaly present. Neck Other: . Extrem Other: Visual exam of foot performed. No ulcerations or open lesions. No onchomycosis, no callouses.Pulses 2 + distally Sensation intact to monofilament exam. Vibratory sensation sensed is idecreased with 128 Hz tuning fork Results AMB Hemoglobin A1c AMB Hemoglobin A1c 11.4 % Last Edit by Annemarie Cavanaugh on 07/29/23 10:26 Results Reviewed Results Reviewed: 07/29/23 10:12 Glucose, Whole Blood Routine Laboratory Last Values Glucose (Clinic) 341 mg/dL (60-115) H 07/29/23 10:12 Hgb A1c (Clinic) 11.4 % (4.0-6.0) H 07/29/23 10:21 Assessment & Plan Assessment & Plan (1) Diabetes type 2, uncontrolled: Code(s): E11.65 - Type 2 diabetes mellitus with hyperglycemia Plan: This is a 58-year-old white female with a history of type 2 diabetes being treated with Trulicity and basal-bolus with poor glycemic control and no known microvascular or macrovascular complications Plan is to check anti-ÁNGELA 65ab to rule out type 1 diabetes considering lack of family history. Will try to initiate Jn 2. Once we have more data can adjust insulin as well as possibly switch Trulicity to Mounjaro . Will have patient see clinical unit educator and development chemist. Went over relationship poor glycemic control to development and progression complications Orders: Orders Glutamic acid decarboxylase Ab Today E11.65 - Type 2 diabetes mellitus with hyperglycemia AMB Hemoglobin A1c Today E11.65 - Type 2 diabetes mellitus with hyperglycemia Referrals Diabetes Education Referral E11.65 - Type 2 diabetes mellitus with hyperglycemia Nutrition/Dietitian Referral E11.65 - Type 2 diabetes mellitus with hyperglycemia Medications: New flash glucose sensor (FreeStyle Jn 2 Sensor kit) As directed change every 14 days 2 ea 6RF flash glucose scanning reader (FreeStyle Jn 2 [place]) As directed 1 ea 0RF flash glucose scanning reader (FreeStyle Jn 2 [place]) As directed 1 ea 0RF flash glucose sensor (FreeStyle Jn 2 Sensor kit) As directed change every 14 days 2 ea 6RF Coding Level of Care Code Est Pt Level 4 (33962) Diagnoses Uncontrolled type 2 diabetes mellitus with hyperglycemia E11.65
[2023-07-29 09:33] VITALS: BP 140/60; PULSE 95; BMI 45.8
[2023-07-29 10:16] LABS: Glucose, Whole Blood 341 mg/dL (60-115)
== END 2023-07-29 10:56 | disposition home or self-care (01) ==
PROVIDERS: PCP Internal Medicine; Visit Provider Internal Medicine Endocrinology, Diabetes & Metabolism
DX: E11.65 Type 2 diabetes mellitus with hyperglycemia (principal)
CPT/HCPCS: 99214

== ENCOUNTER 2023-07-29 11:17 | Outpatient (REF) | payer OTHER, SELFPAY ==
[2023-08-01 15:33] LABS: Glutamic acid decarboxylase Ab <5 IU/mL (<5)
== END 2023-07-29 11:18 | disposition home or self-care (01) ==
LOC: HO.10HDL 11:17
PROVIDERS: Visit Provider Internal Medicine Endocrinology, Diabetes & Metabolism
DX: E11.65 Type 2 diabetes mellitus with hyperglycemia (principal)
CPT/HCPCS: 36415; 86341

== ENCOUNTER 2023-09-03 12:48 | Outpatient (AMB) | payer OTHER, SELFPAY ==
[2023-09-03 13:00] VITALS: BMI 45.8
--- NOTE | 2023-09-03 13:00 | A.OFFVIS_ITS ---
Intake VS Expanded 09/03/23 13:00 09/12/23 10:48 Height 5 ft 3 in 5 ft 3 in Weight 258 lb 6.108 oz 258 lb BMI 45.8 45.7 Intake Visit Reasons: DM/ [place]/CONFIRMED Allergies codeine [Codeine] Allergy (Intermediate, Verified 07/29/23 10:09) ITCH naproxen [From Naprosyn] Allergy (Intermediate, Verified 07/29/23 10:09) SWELLING morphine [Morphine] Allergy (Mild, Verified 07/29/23 10:09) ITCHING sumatriptan [From Imitrex] Allergy (Mild, Verified 07/29/23 10:09) HEADACHE WORSENS doxycycline Allergy (Unknown, Verified 07/29/23 10:09) unknown gabapentin Allergy (Unknown, Verified 07/29/23 10:09) Unknown Penicillins [PENICILLINS] Allergy (Unknown, Verified 07/29/23 10:09) HIVES Sulfa (Sulfonamide Antibiotics) [SULFA (SULFONAMIDE ANTIBIOTICS)] Allergy (Unknown, Verified 07/29/23 10:09) N/V sulfamethoxazole [From BACTRIM] Allergy (Unknown, Verified 07/29/23 10:09) N/V trimethoprim [From BACTRIM] Allergy (Unknown, Verified 07/29/23 10:09) N/V pregabalin Adverse Reaction (Unknown, Verified 07/29/23 10:09) Unknown HPI Nutrition Presentation Details Pt presents for MNT for T2DM. Pt was referred by Dr. Myers, manager nursing home Pt reports typically having 3 meals per day Meals consist of B: Scrambled eggs/sausage/Japanese/ pancakes, orange juice /orange and cup of coffee black L: Sand with ham/cheese/fruits/chips, water or juice D:potato/meat/veg,water /juice snack: fruits/chips/yogurts physical activity : sedentary, uses walker ETOH/Smoking--- BMX-Pwfckue-Uo.Jeor Equation Height 5 ft 3 in Weight 258 lb Resting Metabolic Rate 1727.78 Calculated Activity Level Sedentary Calories Needed to Maintain Weight 2073.34 Diagnosis Nutrition problem #1 excessive energy intake As related to (etiology) #1 diagnosis As evidenced by (sign/symptom) #1 elevated HgbA1c (11.4% on 07/2023) Learning/Education Readiness to learn good Stages of change preparation Educational materials provided Yes (meal planning) Most Recent Diabetes Results: Microalb/Creat Ratio 11.1 ug/mg cr 01/03/23 Cholesterol 176 mg/dL 01/03/23 HDL Cholesterol 50 mg/dL 01/03/23 Triglycerides 189 mg/dL 01/03/23 Creatinine 0.88 mg/dL (0.5-1.4) 01/03/23 Blood Urea Nitrogen 13 mg/dL (9-16) 01/03/23 Sodium 139 mmol/L (135-145) 01/03/23 Potassium 4.2 mmol/L (3.3-5.1) 01/03/23 Chloride 106 mmol/L (96-108) 01/03/23 Carbon Dioxide 24 mmol/L (22-29) 01/03/23 Calcium 9.0 mg/dL (8.4-10.2) 01/03/23 AST 14 U/L (5-31) 01/03/23 ALT 22 U/L (0-31) 01/03/23 Total Protein 6.5 g/dL (6.5-8.0) 01/03/23 Albumin 3.6 g/dL (3.5-5.0) 01/03/23 [facility] Medical History Anxiety, generalized Diabetes type 2, uncontrolled Headache syndrome Hypertension, essential Lipid disorder Long-term current use of insulin for diabetes mellitus Neck pain Suicidal ideation Surgical History History of lumpectomy of left breast History of repair of right rotator cuff History of repair of left rotator cuff History of appendectomy Hernia Hx of cholecystectomy History of colectomy Family History Father No problems noted. Mother CHF (congestive heart failure) HTN (hypertension) Type 2 diabetes mellitus Bone cancer Brother No problems noted. Brother No problems noted. Social History Household Members: None Housing: Homeless Do you presently have visiting nurse or other home services: No Alcohol intake: never Patient Tobacco Use Status: Never used Tobacco e-Cigarette/Vaping Use: Never Used Second Hand Smoke Exposure: Yes service: No Current occupational status: disabled Sexual orientation: Straight/Heterosexual Cognitive needs: No Hearing needs: No Vision needs: No Assessment & Plan Assessment & Plan (1) Diabetes type 2, uncontrolled: Code(s): E11.65 - Type 2 diabetes mellitus with hyperglycemia Plan: Wt: 117 Kg (08/2023 ) Est kcal needs as per MSJ: 2000 (40% carb, 30% protein/fat) Est fluid needs as per 25-30 ml/d: 2900 -3500 Est prot per day as per 1 g/kg bw: 117 Recommend fiber intake : 8-10 g per day and gradually increase to 25-28 g per day for women and 35-38 g for men or as tolerated Recommend sodium intake per day : less than 2000 mg Educated patient on: ( R = reviewed V = verbalizes understanding N/R = needs review N/A = not applicable * Food sources of carbohydrate, adequate serving sizes and its role in various health conditions: R * Differences between complex carbohydrates a simple carbohydrates, role of fiber in diet: R * Lean protein sources of foods: R * Differences between types of fats and role in diet (mono on saturated fat fatty acids, saturated fatty acids, trans fats): N/R * Food sources of sodium in salt and healthy modifications for heart health in kidney health: NR * Vitamins and minerals: N/R * Healthy plate method concept: R V * Physical activity: Benefits a precaution: N/R * Hypoglycemia protocol (rule of 15): N/R * Dietary prevention of Hyperglycemia: R Patient Instructions: Practice mindful eating Reduce on portion of starches following healthy plate method, choose water as main source of beverage, choose low sugar beverage options Have a meal replacement once a day Coding Level of Care Code Nutr Indiv Intake (65236) Diagnoses Uncontrolled type 2 diabetes mellitus with hyperglycemia E11.65 Time Spent (min) 30
[2023-09-12 10:48] VITALS: BMI 45.7
== END 2023-09-03 13:43 | disposition home or self-care (01) ==
PROVIDERS: PCP Internal Medicine; Visit Provider Dietitian, Registered
DX: E11.65 Type 2 diabetes mellitus with hyperglycemia (principal)

== ENCOUNTER → 2023-09-03 12:48 | Outpatient (BNVA) | payer OTHER, SELFPAY | PROVIDERS: PCP Internal Medicine; Visit Provider Dietitian, Registered | DX: E11.65 Type 2 diabetes mellitus with hyperglycemia (principal) | CPT/HCPCS: 97802 ==

== ENCOUNTER 2023-12-02 15:43 | Outpatient (AMB) | payer OTHER, SELFPAY ==
--- NOTE | 2023-12-02 16:00 | A.OFFVIS_ITS ---
Intake Intake Visit Reasons: MADAN/ [place] Cutter Required: No Accompanied by: Self / Same As Patient Allergies codeine [Codeine] Allergy (Intermediate, Verified 07/29/23 10:09) ITCH naproxen [From Naprosyn] Allergy (Intermediate, Verified 07/29/23 10:09) SWELLING morphine [Morphine] Allergy (Mild, Verified 07/29/23 10:09) ITCHING sumatriptan [From Imitrex] Allergy (Mild, Verified 07/29/23 10:09) HEADACHE WORSENS doxycycline Allergy (Unknown, Verified 07/29/23 10:09) unknown gabapentin Allergy (Unknown, Verified 07/29/23 10:09) Unknown Penicillins [PENICILLINS] Allergy (Unknown, Verified 07/29/23 10:09) HIVES Sulfa (Sulfonamide Antibiotics) [SULFA (SULFONAMIDE ANTIBIOTICS)] Allergy (Unknown, Verified 07/29/23 10:09) N/V sulfamethoxazole [From BACTRIM] Allergy (Unknown, Verified 07/29/23 10:09) N/V trimethoprim [From BACTRIM] Allergy (Unknown, Verified 07/29/23 10:09) N/V pregabalin Adverse Reaction (Unknown, Verified 07/29/23 10:09) Unknown HPI Comprehensive Diabetes Asmnt Most Recent Diabetes Results: No Data to Display [facility] Medical History Anxiety, generalized Diabetes type 2, uncontrolled Headache syndrome Hypertension, essential Lipid disorder Long-term current use of insulin for diabetes mellitus Neck pain Suicidal ideation Surgical History History of lumpectomy of left breast History of repair of right rotator cuff History of repair of left rotator cuff History of appendectomy Hernia Hx of cholecystectomy History of colectomy Family History Father No problems noted. Mother CHF (congestive heart failure) HTN (hypertension) Type 2 diabetes mellitus Bone cancer Brother No problems noted. Brother No problems noted. Social History Household Members: None Housing: Homeless Do you presently have visiting nurse or other home services: No Alcohol intake: never Patient Tobacco Use Status: Never used Tobacco e-Cigarette/Vaping Use: Never Used Second Hand Smoke Exposure: Yes service: No Current occupational status: disabled Sexual orientation: Straight/Heterosexual Cognitive needs: No Hearing needs: No Vision needs: No Assessment & Plan Assessment & Plan (1) Diabetes type 2, uncontrolled: Code(s): E11.65 - Type 2 diabetes mellitus with hyperglycemia Plan: Personal Continuous Glucose Monitor: Patients CGM information reviewed Reviewed patient's sensor data: Hypoglycemia: ? 0% Hyperglycemia:? 81% Time in Range:? 19% Average glucose for the last 2 weeks 278? mg/dL Patient reports that currently she lives in a homeless [facility] and does not have a lot of control over meals. Has limited mobility, uses rolling walker to ambulate Her last A1c was 11.4 in July 2023, she is currently waiting for hernia repair operation, and knee replacement. Discussed with patient the importance of reducing A1c and average glucose to reduce risk of infection and poor healing At last visit she discussed with Dr. Myers switching from Trulicity 1.5 mg to Mounjaro, sent message to Dr. Myers to send prescription for Mounjaro if appropriate Reviewed how to interpret trend arrows Reminded patient that to check finger sticks if symptoms do not match sensor reading. Discussed lag time between finger stick and sensor data.? Patient's has assistance at home to insert Jn sensors, patient given sample of skin tac to see if sensors here better. Coding Level of Care Code Est Pt Level 1 (16116) Diagnoses Uncontrolled type 2 diabetes mellitus with hyperglycemia E11.65
== END 2023-12-02 16:08 | disposition home or self-care (01) ==
PROVIDERS: PCP Internal Medicine; Visit Provider Registered Nurse Diabetes Educator
DX: E11.65 Type 2 diabetes mellitus with hyperglycemia (principal)

== ENCOUNTER → 2023-12-02 15:43 | Outpatient (BNVA) | payer OTHER, SELFPAY | PROVIDERS: PCP Internal Medicine; Visit Provider Registered Nurse Diabetes Educator | DX: E11.65 Type 2 diabetes mellitus with hyperglycemia (principal) | CPT/HCPCS: 99211 ==

== ENCOUNTER 2024-01-07 12:47 | Outpatient (AMB) | payer OTHER, SELFPAY ==
[2024-01-07 12:53] VITALS: BP 144/62; PULSE 91; O2SAT 95; BMI 45.2
--- NOTE | 2024-01-07 12:53 | A.OFFPC_ITS ---
Vital Signs 01/07/24 12:53 Height 5 ft 3 in Weight 255 lb 2 oz BMI 45.2 BP 144/62 H Blood Pressure Location Rt brachial Position Sitting Pulse 91 Pulse Source Pulse Oximeter Pulse Oximetry (%) 95 Oxygen Delivery Method Room Air Intake Visit Reasons: PCP Visit Allergies codeine [Codeine] Allergy (Intermediate, Verified 01/07/24 12:54) ITCH naproxen [From Naprosyn] Allergy (Intermediate, Verified 01/07/24 12:54) SWELLING morphine [Morphine] Allergy (Mild, Verified 01/07/24 12:54) ITCHING sumatriptan [From Imitrex] Allergy (Mild, Verified 01/07/24 12:54) HEADACHE WORSENS doxycycline Allergy (Unknown, Verified 01/07/24 12:54) unknown gabapentin Allergy (Unknown, Verified 01/07/24 12:54) Unknown Penicillins [PENICILLINS] Allergy (Unknown, Verified 01/07/24 12:54) HIVES Sulfa (Sulfonamide Antibiotics) [SULFA (SULFONAMIDE ANTIBIOTICS)] Allergy (Unknown, Verified 01/07/24 12:54) N/V sulfamethoxazole [From BACTRIM] Allergy (Unknown, Verified 01/07/24 12:54) N/V trimethoprim [From BACTRIM] Allergy (Unknown, Verified 01/07/24 12:54) N/V pregabalin Adverse Reaction (Unknown, Verified 01/07/24 12:54) Unknown Medication List - Last Reconciled 01/07/24 by Angela New MD alcohol swabs topically; clean skin before injecting insulin three times a day blood sugar diagnostic (OneTouch Ultra Test strips) Use to check blood sugar 3 times daily: fasting and before lunch/dinner blood-glucose meter (OneTouch Ultra2 Meter) Use to check blood sugar 3 times da nicole: fasting and before lunch/dinner dextromethorphan polistirex ER (Delsym 12 hour) 10 mL PO Q12H PRN 10 days flash glucose scanning reader (FreeStyle Jn 2 [place]) USE DIRECTED flash glucose sensor (FreeStyle Jn 2 Sensor kit) As directed change every 14 days hydroxyzine HCl 25 mg PO BID 30 days insulin aspart U-100 14 units with meals, plus 2 units for blood sugars over 200 subcut 3 times a day; 30 days insulin degludec 45 units (0.225 mL) subcut DAILY 30 days lamotrigine 1 tab PO BID 30 days lancets (OneTouch UltraSoft Lancets) Use to check blood sugar 3 times daily: fasting and before lunch/dinner lancing device (Adjustable Lancing Device) As directed lisinopril 10 mg PO DAILY pen needle, diabetic (BD Ultra-Fine [place] Pen Needle) As directed five times a day pravastatin 20 mg PO DAILY 90 days quetiapine 200 mg PO BEDTIME 30 days tirzepatide (Mounjaro) 2.5 mg (0.5 mL) subcut QWEEK 4 weeks Tobacco use date assessed: 01/07/24 Dental Screening Dental Screen Date: 01/07/24 Did you have a dental visit in the last 12 months?: No Did you have a dental problem in the last 6 months where you did not have access to dental care?: No Was dental information given to patient?: Patient has dentist HPI PCP Visit HPI Details Patient is morbidly obese female came in today for her follow-up appointment on hypertension and lipid disorder Patient was last seen March of last year and in come in after that Patient is homeless and is living in homeless custodial She is now seeing endocrinology for the management of diabetes And has psych med prescriber for her depression and other psychiatric needs Blood pressure is slightly elevated I am not sure if patient is taking medications regularly She says that the homeless custodial has a doctor and she would like to see that doctor because it is difficult for her to come it She will talk to her insurance company Lab order is due she will have that done today Pneumonia vaccine was given [facility] Medical History Suicidal ideation Long-term current use of insulin for diabetes mellitus Neck pain Headache syndrome Anxiety, generalized Lipid disorder Hypertension, essential Diabetes type 2, uncontrolled Surgical History History of lumpectomy of left breast History of repair of right rotator cuff History of repair of left rotator cuff History of appendectomy Hernia Hx of cholecystectomy History of colectomy Family History Father No problems noted. Mother CHF (congestive heart failure) HTN (hypertension) Type 2 diabetes mellitus Bone cancer Brother No problems noted. Brother No problems noted. Social History Household Members: None Housing: Homeless Do you presently have visiting nurse or other home services: No Alcohol intake: never Patient Tobacco Use Status: Never used Tobacco e-Cigarette/Vaping Use: Never Used Second Hand Smoke Exposure: Yes service: No Current occupational status: disabled Sexual orientation: Straight/Heterosexual Cognitive needs: No Hearing needs: No Vision needs: No Questionnaire PHQ-9 Over the last 2 weeks, how often have you been bothered by any of the following problems? 1. Little interest or pleasure in doing things: not at all 2. Feeling down, depressed, or hopeless: not at all 3. Trouble falling or staying asleep, or sleeping too much: not at all 4. Feeling tired or having little energy: not at all 5. Poor appetite or overeating: not at all 6. Feeling bad about yourself - or that you are a failure or have let yourself or your family down: not at all 7. Trouble concentrating on things, such as reading the newspaper or watching television: not at all 8. Moving or speaking so slowly that other people could have noticed. Or the opposite - being so fidgety or restless that you have been moving around a lot more than usual: not at all 9. Thoughts that you would be better off or of hurting yourself in some way: not at all Total score: 0 Depression Screening Interpretation: Negative Depression Screening Done: Yes 93318 - PHQ-9 Billing: Yes Source: Developed by Drs. Flakito Mora, Lynda Enrique, Miguel Angel Tse and colleagues, with an educational nona from [employer]. Thrive Questionnaire Date Thrive assessed: 01/07/24 I am a: Patient What is your living situation today?: I have a steady place to live Within the past 12 months, did the food you bought not last and you didn't have the money to get more?: Never true Within the past 12 months, did you worry whether your food would run out before you got money to buy more?: Never true Do you have trouble paying for medicines?: No Do you have trouble getting transportation to medical appointments?: Yes Do you have trouble paying your heating and electricity bill?: No Do you have trouble taking care of your child, family member or friend?: No Do you have trouble with day-to-day activities such as bathing, preparing meals, shopping, managing finances, etc.?: No Are you currently unemployed and looking for a job?: No Are you interested in more education?: No Please select the resources that you would like help with: None Currently or been in a relationship where the following occur: no concerns reported THRIVE Score: 1 AUDIT C Alcohol Use Questionnaire (AUDIT-C) 1. How often do you have a drink containing alcohol?: Never 3. How often do you have six or more drinks on one occasion?: Never Total Score: 0 Score Reviewed/Action Taken: Yes ÁNGELA-7 AMB Questionnaire ÁNGELA-7 Date ÁNGELA - 7 assessed: 01/07/24 Not being able to stop or control worryin = Not at all Worrying too much about different things: 0 = Not at all Trouble relaxin = Not at all Being so restless that it is hard to sit still: 0 = Not at all Becoming easily annoyed or irritable: 0 = Not at all Feeling afraid as if something awful might happen: 0 = Not at all Source: Developed by Drs. Flakito Mora, Lynda Enrique, Miguel Angel Tse and colleagues, with an educational nona from [employer]. ÁNGELA-7 Assessment Billing ÁNGELA-7 Assessment Tool: ÁNGELA-7 Assessment 76640 Review of Systems Const Denies chills and Denies fever(s) ENT Denies epistaxis and Denies nasal discharge Card Denies chest pain Resp Denies chest congestion, Denies cough and Denies hemoptysis GI Denies diarrhea and Denies nausea Skin/Breast Denies rash Neuro Reports no additional complaints Psych Reports no additional complaints Endo Reports no additional complaints Physical exam (Primary Care) Vital Signs: Last Vital Signs Pulse 91 01/07/24 12:53 BP 144/62 H 01/07/24 12:53 Pulse Ox 95 01/07/24 12:53 Oxygen Delivery Method Room Air 01/07/24 12:53 BMI result Body Mass Index 45.2 Tobacco/Smoking Status: Tobacco use Status Tobacco use date assessed 01/07/24 01/07/24 12:57 Patient Tobacco Use Status Never used Tobacco 01/07/24 12:57 e-Cigarette/Vaping Use Never Used 01/07/24 12:57 PHQ-9: PHQ-9 Score PHQ-9: Total score 0 01/07/24 13:12 Depression Screening Interpretation: Negative Thrive Assessment: Date of Thrive Assessment Date Thrive assessed 01/07/24 01/07/24 13:12 Currently or been in a relationship where the following occur: no concerns reported Const General: cooperative, comfortable and no acute distress Orientation/consciousness: patient oriented x3 HENMT Head: Yes normocephalic Eyes General: appearance normal, both eyes and all related structures Neck Neck: Yes supple Resp Effort & Inspection: normal respiratory effort, no cough and no stridor Cardio Rhythm: regular rhythm Heart sounds: S1 normal heart sound present and S2 normal heart sound present Skin General skin exam: turgor normal Neuro General: patient oriented x3, tone normal and moves all extremities Extrem Right lower extremity: no edema Left lower extremity: no edema Immunizations pneumoc 20-aaliyah conj-dip cr(PF) 0.5 mL IM syringe Performing Provider: Angela New MD Performing Location: [facility] Administered by: Mohit Cordova CMA on 01/07/24 13:11 Dose Route Admin Location Dispensed Lot Number Expiration Date NDC Educational Psychology Teacher 0.5 mL IM Right Deltoid 0.5 mL [id number] 11/14/24 [employer] VIS Given Date VIS Provided VIS Publication Date 01/07/24 Single Vaccine 21 Eligibility Eligibility Date Funding Source Not [facility] Eligible 01/07/24 Private Assessment and Plan Assessment & Plan (1) Uncontrolled diabetes mellitus: Qualifiers: Diabetes mellitus type: type 2 Glycemic state: with hyperglycemia Qualified Code(s): E11.65 - Type 2 diabetes mellitus with hyperglycemia (2) Morbid obesity due to excess calories: Code(s): E66.01 - Morbid (severe) obesity due to excess calories (3) Long-term current use of insulin for diabetes mellitus: Code(s): Z79.4 - terminal make up operator (current) use of insulin; E11.9 - Type 2 diabetes mellitus without complications (4) Hypertension, essential: Code(s): I10 - Essential (primary) hypertension (5) Lipid disorder: Code(s): E78.9 - Disorder of lipoprotein metabolism, unspecified (6) Anxiety, generalized: Code(s): F41.1 - Generalized anxiety disorder Plan Patient is morbidly obese female came in today for her follow-up appointment on hypertension and lipid disorder Patient was last seen March of last year and in come in after that Patient is homeless and is living in homeless custodial She is now seeing endocrinology for the management of diabetes And has psych med prescriber for her depression and other psychiatric needs Blood pressure is slightly elevated I am not sure if patient is taking medications regularly She says that the homeless custodial has a doctor and she would like to see that doctor because it is difficult for her to come it She will talk to her insurance company Lab order is due she will have that done today Pneumonia vaccine was given Orders: Orders Complete Blood Count Auto Diff Today E11.9 - Type 2 diabetes mellitus without complications, E66.01 - Morbid (severe) obesity due to excess calories, E78.9 - Disorder of lipoprotein metabolism, unspecified, F41.1 - Generalized anxiety disorder, G44.89 - Other headache syndrome, I10 - Essential (primary) hypertension, Z79.4 - FDC (current) use of insulin Microalbumin, Random (w Creat) Today E11.9 - Type 2 diabetes mellitus without complications, Z79.4 - FDC (current) use of insulin Pneumococcal 20 Immunization Today Z23 - Encounter for immunization Comprehensive Met. Panel Today E11.9 - Type 2 diabetes mellitus without complications, E66.01 - Morbid (severe) obesity due to excess calories, E78.9 - Disorder of lipoprotein metabolism, unspecified, F41.1 - Generalized anxiety disorder, G44.89 - Other headache syndrome, I10 - Essential (primary) hypertension, Z79.4 - terminal make up operator (current) use of insulin LDL Cholesterol Direct Today E11.9 - Type 2 diabetes mellitus without complications, E66.01 - Morbid (severe) obesity due to excess calories, E78.9 - Disorder of lipoprotein metabolism, unspecified, F41.1 - Generalized anxiety disorder, G44.89 - Other headache syndrome, I10 - Essential (primary) hypertension, Z79.4 - terminal make up operator (current) use of insulin Hemoglobin A1c Today E11.9 - Type 2 diabetes mellitus without complications, E66.01 - Morbid (severe) obesity due to excess calories, E78.9 - Disorder of lipoprotein metabolism, unspecified, F41.1 - Generalized anxiety disorder, G44.89 - Other headache syndrome, I10 - Essential (primary) hypertension, Z79.4 - FDC (current) use of insulin Coding Level of Care Code Est Pt Level 4 (54426) Diagnoses Uncontrolled type 2 diabetes mellitus with hyperglycemia E11.65 Diabetes mellitus type: type 2 Glycemic state: with hyperglycemia Morbid obesity due to excess calories E66.01 Long-term current use of insulin for diabetes mellitus Z79.4; E11.9 Hypertension, essential I10 Lipid disorder E78.9 Anxiety, generalized F41.1 Additional Codes ÁNGELA-7 Assessment Billing - ÁNGELA-7 Assessment Tool: ÁNGELA-7 Assessment [id number] ([id number])
== END 2024-01-07 16:16 | disposition home or self-care (01) ==
PROVIDERS: PCP Internal Medicine; Visit Provider Internal Medicine
DX: E11.65 Type 2 diabetes mellitus with hyperglycemia (principal); E66.01 Morbid (severe) obesity due to excess calories; Z68.42 Body mass index [BMI] 45.0-49.9, adult; Z23 Encounter for immunization; Z79.4 Long term (current) use of insulin; I10 Essential (primary) hypertension; E78.9 Disorder of lipoprotein metabolism, unspecified; F41.1 Generalized anxiety disorder
CPT/HCPCS: 90471; 90677; 99214

== ENCOUNTER 2024-01-07 13:14 | Outpatient (REF) | payer OTHER, SELFPAY ==
[2024-01-07 16:12] LABS: MANUAL DIFF FLAG NO
[2024-01-07 16:40] LABS: Basophils Absolute Auto 0.1 X10*3/uL (0.0-0.2); Basophils Percent Auto 0.8 % (0-2); Eosinophils Absolute Auto 0.1 X10*3/uL (0.0-0.4); Eosinophils Percent Auto 1.6 % (0-4); Hematocrit 38.2 % (37.0-47.0); Hemoglobin 12.4 g/dl (12.0-16.0); Imm Gran Abs Auto 0.02 X10*3/uL (0.00-0.03); Imm Gran Pct Auto 0.3 % (0.0-0.4); Lymphocytes Absolute Auto 1.8 X10*3/uL (1.2-4.9); Lymphocytes Percent Auto 27.8 % (20-40); Mean Corpuscular HGB Conc 32.5 g/dl (31.0-35.0); Mean Corpuscular Hemoglobin 29.8 pg (27.0-33.0); Mean Corpuscular Volume 91.8 fL (80.0-98.0); Mean Platelet Volume 10.3 fL (9.4-12.3); Monocytes Absolute Auto 0.5 X10*3/uL (0.1-1.2); Monocytes Percent Auto 7.5 % (2-11); Neutrophils Absolute Auto 3.9 x10*3/uL (2.0-8.3); Platelet Count 303 X10*3/uL (160-400); Red Blood Count 4.16 X10*6/uL (4.20-5.50); Red Cell Distribution Width 13.3 % (11.0-16.0); White Blood Count 6.3 X10*3/uL (4.8-10.8)
[2024-01-07 16:52] LABS: Estimated Average Glucose 266 mg/dL; Hemoglobin A1c % 10.9 % (<6.0)
[2024-01-07 17:23] LABS: Creatinine Urine 123.03 mg/dL; Microalbum/Creatinine Ratio Ur 14.6 ug/mg cr (<30)
[2024-01-07 17:27] LABS: Alanine Aminotransferase 25 U/L (0-31); Albumin Level 3.5 g/dL (3.5-5.0); Alkaline Phosphatase 93 U/L (39-117); Anion Gap 12 (12-20); Aspartate Amino Transferase 15 U/L (5-31); Bilirubin Total 0.2 mg/dL (0.0-1.0); Blood Urea Nitrogen 14 mg/dL (9-16); Calcium 9.2 mg/dL (8.4-10.2); Carbon Dioxide 25 mmol/L (22-29); Chloride 108 mmol/L (96-108); Estimated Glomerular Filt Rate 60; Glucose Random 295 mg/dL (60-115); Sodium 141 mmol/L (135-145)
[2024-01-08 15:58] LABS: LDL Cholesterol Direct 75 mg/dL (<100)
== END 2024-01-07 13:15 | disposition home or self-care (01) ==
LOC: HO.HMGCLDS 13:14
PROVIDERS: PCP Internal Medicine; Visit Provider Internal Medicine
DX: E66.01 Morbid (severe) obesity due to excess calories (principal); Z79.4 Long term (current) use of insulin; E11.9 Type 2 diabetes mellitus without complications; I10 Essential (primary) hypertension; E78.9 Disorder of lipoprotein metabolism, unspecified; F41.1 Generalized anxiety disorder; G44.89 Other headache syndrome
CPT/HCPCS: 36415; 80053; 82043; 82570; 83036; 83721; 85025

== ENCOUNTER 2024-03-04 10:00 | Outpatient (AMB) | payer OTHER, SELFPAY ==
--- NOTE | 2024-03-04 10:01 | MHC.OFFVIS ---
Vital Signs 03/04/24 10:05 Height 5 ft 3 in Weight 256 lb 2.834 oz BMI 45.4 BP 132/62 Blood Pressure Location Rt radial Position Sitting Pulse 78 Pulse Source Pulse Oximeter Intake Visit Reasons: T2DM Intake Note: Patient present today to follow up on Type 2 Diabetes Mellitus. Last seen by Dr. Myers on 07/29/2023. Patient receives DME supplies through: Pharmacy Last Diabetic Eye exam: Unsure when her last eye exam was Last Podiatry Visit: Does not see a Physicist [place] Random Glucose:254 mg/dl HgA1C: 10.9% 01/07/2024 Care Transport Nurse Required: No Accompanied by: Self / Same As Patient Allergies codeine [Codeine] Allergy (Intermediate, Verified 03/04/24 10:06) ITCH naproxen [From Naprosyn] Allergy (Intermediate, Verified 03/04/24 10:06) SWELLING morphine [Morphine] Allergy (Mild, Verified 03/04/24 10:06) ITCHING sumatriptan [From Imitrex] Allergy (Mild, Verified 03/04/24 10:06) HEADACHE WORSENS doxycycline Allergy (Unknown, Verified 03/04/24 10:06) unknown gabapentin Allergy (Unknown, Verified 03/04/24 10:06) Unknown Penicillins [PENICILLINS] Allergy (Unknown, Verified 03/04/24 10:06) HIVES Sulfa (Sulfonamide Antibiotics) [SULFA (SULFONAMIDE ANTIBIOTICS)] Allergy (Unknown, Verified 03/04/24 10:06) N/V sulfamethoxazole [From BACTRIM] Allergy (Unknown, Verified 03/04/24 10:06) N/V trimethoprim [From BACTRIM] Allergy (Unknown, Verified 03/04/24 10:06) N/V pregabalin Adverse Reaction (Unknown, Verified 03/04/24 10:06) Unknown Medication List - Last Reconciled 03/04/24 by Jazmin Lou NP alcohol swabs topically; clean skin before injecting insulin three times a day blood sugar diagnostic (OneTouch Ultra Test strips) Use to check blood sugar 3 times daily: fasting and before lunch/dinner blood-glucose meter (OneTouch Ultra2 Meter) Use to check blood sugar 3 times daily: fasting and before lunch/dinner blood-glucose meter,continuous (FreeStyle Jn 3 [place]) As directed blood-glucose sensor (FreeStyle Jn 3 Sensor device) As directed dextromethorphan polistirex ER (Delsym 12 hour) 10 mL PO Q12H PRN 10 days hydroxyzine HCl 25 mg PO BID 30 days insulin aspart U-100 16 units with meals, plus SCALE 150-200 +2 UNITS 201-250 + 4 UNITS OVER 250N +6 UNITS 30 days insulin degludec 50 units (0.25 mL) subcut DAILY 30 days lamotrigine 1 tab PO BID 30 days lancets (Advanced Search LaboratoriesTouch UltraSoft Lancets) Use to check blood sugar 3 times daily: fasting and before lunch/dinner lancing device (Adjustable Lancing Device) As directed lisinopril 10 mg PO DAILY pen needle, diabetic (BD Ultra-Fine [place] Pen Needle) As directed five times a day pravastatin 20 mg PO DAILY 90 days quetiapine 200 mg PO BEDTIME 30 days tirzepatide (Mounjaro) 5 mg (0.5 mL) subcut QWEEK HPI Comments Details: Patient is 59 yo female with DM type 2 diagnosed in 1996 who presents for management of diabetes. Patient was last seen by MIN 12/02/[address] Myers 08/08/24. Past medical history: DM2, HTN, hx breast cancer Micro and macrovascular complications: no known Diabetes medications: Tresiba 45 units, NovoLog 14 units with meals plus 2 units for blood sugars over 200, mounjaro 2.5mg. She has noticed since switching from Trulicity 1.5mg to Mounjaro 2.5mg her appetitie has gone up. Symptoms reported: denies numbness, tingling, cramping in lower extremities, very mild edema over past week with no henson OR CP Hypoglycemia: denies Hyperglycemia: + polyuria. Blood glucose monitoring: She thought she was out of sensors so was off for awhile. Last few days on sensor show 99% of the time she is above range, average 318. She reports sugars have been running 200-250 for awhile despite taking all of her meds. Exercise: Walking as tolerated but bone on bone on both knees Diet: she is living in a homeless [facility] and is limited to the foods they serve. Physicist [place]: no Last dental exam: goes every 6 months Last ophthalmology evaluation: last yr . Needs to schedule No family hx of DM PFSH Medical History Suicidal ideation Long-term current use of insulin for diabetes mellitus Neck pain Headache syndrome Anxiety, generalized Lipid disorder Hypertension, essential Diabetes type 2, uncontrolled Surgical History History of lumpectomy of left breast History of repair of right rotator cuff History of repair of left rotator cuff History of appendectomy Hernia Hx of cholecystectomy History of colectomy Family History Father No problems noted. Mother CHF (congestive heart failure) HTN (hypertension) Type 2 diabetes mellitus Bone cancer Brother No problems noted. Brother No problems noted. Social History Household Members: None Housing: Homeless Do you presently have visiting nurse or other home services: No Alcohol intake: never Patient Tobacco Use Status: Never used Tobacco e-Cigarette/Vaping Use: Never Used Second Hand Smoke Exposure: Yes service: No Current occupational status: disabled Sexual orientation: Straight/Heterosexual Cognitive needs: No Hearing needs: No Vision needs: No Physical Exam Vital Signs: Last Vital Signs Pulse 78 03/04/24 10:05 BP 132/62 03/04/24 10:05 BMI result Body Mass Index 45.4 Const General: cooperative, healthy appearing and comfortable Nutritional Appearance: overweight Orientation/consciousness: oriented to person Limitations: ambulation with walker Eyes General: appearance normal, both eyes and all related structures Neck Neck: Yes no lymphadenopathy Thyroid: Thyroid normal Resp Effort & Inspection: normal respiratory effort Auscultation: clear to auscultation bilaterally Cardio Other: no carotid bruit Jugular venous distension: no JVD Rate: regular rate Rhythm: regular rhythm Heart sounds: S1 normal heart sound present and S2 normal heart sound present Skin Rashes: no rashes Neuro General: oriented to person Extrem Other: trace edema Results Reviewed Results Reviewed: Laboratory Last Values Glucose (Clinic) 254 mg/dL (60-115) H 03/04/24 10:15 Laboratory Tests 07/29/23 01/07/24 10:21 13:17 Sodium 141 Potassium 4.0 Chloride 108 Creatinine 0.96 Estimated GFR 60 Hgb A1c (Clinic) 11.4 H Hemoglobin A1c % 10.9 H Calcium 9.2 AST 15 ALT 25 LDL Cholesterol Direct 75 Assessment & Plan Assessment & Plan (1) Diabetes type 2, uncontrolled: Code(s): E11.65 - Type 2 diabetes mellitus with hyperglycemia Category: Medical Plan: We discussed in depth the means of A1C and increased risk for eye, kidney and vascular damage. She will attempt to increase her exercise by walking short distances. Diet is limited by meals served and [facility]. Medication will be increased to: Tresiba 50 units Novolog 16 units tid with meals 150-200 +2 units 201-250 +4 units over 250 + 6 units Mounjaro 5mg daily Will have patient see cde in 2 weeks for review of glucose readings. She will bring in JW Player jn 3 (converting from 2-3) I will see her back in 4 weeks and will work intensively with her over the next 3-4 months to get her A1C in better range. Reviewed need to carry a sugar source. Will consider ordering sglt-2 inhibitor when numbers are in lower range. (2) Morbid obesity due to excess calories: Code(s): E66.01 - Morbid (severe) obesity due to excess calories Category: Medical Plan: Increase Mounjaro to 5mg (3) Hypertension, essential: Code(s): I10 - Essential (primary) hypertension Category: Medical Plan: At target, continue current meds (4) Lipid disorder: Code(s): E78.9 - Disorder of lipoprotein metabolism, unspecified Category: Medical Plan: ldl at target on statin Plan As ABOVE Medications: New blood-glucose meter,continuous (FreeStyle Jn 3 [place]) As directed 1 ea 1RF E11.65 - Type 2 diabetes mellitus with hyperglycemia blood-glucose sensor (FreeStyle Jn 3 Sensor device) As directed 2 ea 11RF E11.65 - Type 2 diabetes mellitus with hyperglycemia tirzepatide (Mounjaro) 5 mg (0.5 mL) subcut QWEEK 2 mL 0RF E11.65 - Type 2 diabetes mellitus with hyperglycemia Changed From insulin aspart U-100 14 units with meals, plus 2 units for blood sugars over 200 subcut 3 times a day; 30 days 45 mL 3RF E11.65 - Type 2 diabetes mellitus with hyperglycemia To insulin aspart U-100 16 units with meals, plus SCALE 150-200 +2 UNITS 201-250 + 4 UNITS OVER 250N +6 UNITS 30 days 45 mL 3RF E11.65 - Type 2 diabetes mellitus with hyperglycemia From insulin degludec 45 units (0.225 mL) subcut DAILY 30 days 6.75 mL 6RF E11.65 - Type 2 diabetes mellitus with hyperglycemia To insulin degludec 50 units (0.25 mL) subcut DAILY 30 days 7.5 mL 6RF E11.65 - Type 2 diabetes mellitus with hyperglycemia Discontinued flash glucose sensor (FreeStyle Jn 2 Sensor kit) Discontinued Reason: Doctor's Order USE DIRECTED AND CHANGE EVERY 14 DAYS 2 ea 0RF tirzepatide (Mounjaro) Discontinued Reason: No Longer Medically Relevant 2.5 mg (0.5 mL) subcut QWEEK 4 weeks 2 mL 4RF flash glucose scanning reader (FreeStyle Jn 2 [place]) Discontinued Reason: Doctor's Order USE DIRECTED 1 ea 0RF Coding Level of Care Code Est Pt Level 4 (48933) Complex EM visit Add On G2211 Diagnoses Uncontrolled type 2 diabetes mellitus with hyperglycemia E11.65 Morbid obesity due to excess calories E66.01 Hypertension, essential I10 Lipid disorder E78.9 Time Spent (min) 40 Comment 30 minutes face to face, 10 min chart review
[2024-03-04 10:05] VITALS: BP 132/62; PULSE 78; BMI 45.4
[2024-03-04 10:19] LABS: Glucose, Whole Blood 254 mg/dL (60-115)
== END 2024-03-04 10:44 | disposition home or self-care (01) ==
PROVIDERS: PCP Internal Medicine; Visit Provider Nurse Practitioner Adult Health
DX: E11.65 Type 2 diabetes mellitus with hyperglycemia (principal); E66.01 Morbid (severe) obesity due to excess calories; I10 Essential (primary) hypertension; E78.9 Disorder of lipoprotein metabolism, unspecified
CPT/HCPCS: 99214; G2211

== ENCOUNTER → 2024-03-04 10:00 | Outpatient (BNVA) | payer OTHER, SELFPAY | PROVIDERS: PCP Internal Medicine; Visit Provider Nurse Practitioner Adult Health | DX: E11.65 Type 2 diabetes mellitus with hyperglycemia (principal); E78.9 Disorder of lipoprotein metabolism, unspecified; E66.01 Morbid (severe) obesity due to excess calories; I10 Essential (primary) hypertension; Z68.42 Body mass index [BMI] 45.0-49.9, adult | CPT/HCPCS: 82947; 99212 ==

== ENCOUNTER 2024-07-07 14:16 | Outpatient (AMB) | payer OTHER, SELFPAY ==
[2024-07-07 14:18] VITALS: BP 134/68; PULSE 92; O2SAT 97; BMI 38.1
--- NOTE | 2024-07-07 14:18 | MHC.PC.OV ---
Vital Signs 07/07/24 14:18 Height 5 ft 3 in Weight 215 lb 4 oz BMI 38.1 BP 134/68 Blood Pressure Location Rt brachial Position Sitting Pulse 92 Pulse Source Pulse Oximeter Pulse Oximetry (%) 97 Oxygen Delivery Method Room Air Intake Visit Reasons: Annual PE Allergies codeine [Codeine] Allergy (Intermediate, Verified 07/07/24 14:19) ITCH naproxen [From Naprosyn] Allergy (Intermediate, Verified 07/07/24 14:19) SWELLING morphine [Morphine] Allergy (Mild, Verified 07/07/24 14:19) ITCHING sumatriptan [From Imitrex] Allergy (Mild, Verified 07/07/24 14:19) HEADACHE WORSENS doxycycline Allergy (Unknown, Verified 07/07/24 14:19) unknown gabapentin Allergy (Unknown, Verified 07/07/24 14:19) Unknown Penicillins [PENICILLINS] Allergy (Unknown, Verified 07/07/24 14:19) HIVES Sulfa (Sulfonamide Antibiotics) [SULFA (SULFONAMIDE ANTIBIOTICS)] Allergy (Unknown, Verified 07/07/24 14:19) N/V sulfamethoxazole [From BACTRIM] Allergy (Unknown, Verified 07/07/24 14:19) N/V trimethoprim [From BACTRIM] Allergy (Unknown, Verified 07/07/24 14:19) N/V pregabalin Adverse Reaction (Unknown, Verified 07/07/24 14:19) Unknown Medication List - Last Reconciled 07/07/24 by Angela New MD alcohol swabs topically; clean skin before injecting insulin three times a day aripiprazole 2 mg PO DAILY aripiprazole 5 mg PO DAILY blood sugar diagnostic (OneTouch Ultra Test strips) Use to check blood sugar 3 times daily: fasting and before lunch/dinner blood-glucose meter (OneTouch Ultra2 Meter) Use to check blood sugar 3 times daily: fasting and before lunch/dinner blood-glucose meter,continuous (FreeStyle Jn 3 [place]) As directed blood-glucose sensor (FreeStyle Jn 3 Sensor device) As directed duloxetine 20 mg PO BID [Hand held shower As directed] insulin aspart U-100 16 units with meals, plus SCALE 150-200 +2 UNITS 201-250 + 4 UNITS OVER 250N +6 UNITS 30 days insulin degludec 50 units (0.25 mL) subcut DAILY 30 days lancets (OneTouch UltraSoft Lancets) Use to check blood sugar 3 times daily: fasting and before lunch/dinner lancing device (Adjustable Lancing Device) As directed lisinopril 10 mg PO DAILY mirtazapine 30 mg PO BEDTIME miscellaneous medical supply Use As directed pen needle, diabetic (BD Ultra-Fine [place] Pen Needle) As directed five times a day pravastatin 20 mg PO DAILY 90 days quetiapine 200 mg PO BEDTIME 30 days [Rollator Walker with seat As directed] [Shower chair As directed] tirzepatide (Mounjaro) 5 mg (0.5 mL) subcut QWEEK Tobacco use date assessed: 07/07/24 Dental Screening Dental Screen Date: 07/07/24 Did you have a dental visit in the last 12 months?: Yes Did you have a dental problem in the last 6 months where you did not have access to dental care?: No Was dental information given to patient?: Patient has dentist HPI Annual PE HPI Details Patient is a 59-year-old female came in today for physical exam Other providers patient is seeing are Endocrinology Dr. Myers She is on semaglutide injections and managed to lose weight on it Patient is seeing a [facility] for her right shoulder pain And has another provider for her knee pain Patient says that she need knee replacement now that she has lost some weight she can book the appointment in talking further Currently she is using walker for ambulation due to weakness in her legs and knees Patient also suffers from psychiatric disease and is seeing psychiatrist for that To medications are from PCP office lisinopril 10 mg and pravastatin 20 mg Requesting an albuterol inhaler Patient says that her used to smoke a lot and she has long exposure to secondhand smoke Due for mammogram Due for OBGYN visit Due for colonoscopy Lab order placed to be done today ON LICENSE OF [facility] Medical History Suicidal ideation Long-term current use of insulin for diabetes mellitus Neck pain Headache syndrome Anxiety, generalized Lipid disorder Hypertension, essential Diabetes type 2, uncontrolled Surgical History History of lumpectomy of left breast History of repair of right rotator cuff History of repair of left rotator cuff History of appendectomy Hernia Hx of cholecystectomy History of colectomy Family History Father No problems noted. Mother CHF (congestive heart failure) HTN (hypertension) Type 2 diabetes mellitus Bone cancer Brother No problems noted. Brother No problems noted. Social History Household Members: None Housing: Homeless Do you presently have visiting nurse or other home services: No Alcohol intake: never Patient Tobacco Use Status: Never used Tobacco e-Cigarette/Vaping Use: Never Used Second Hand Smoke Exposure: Yes service: No Current occupational status: disabled Sexual orientation: Straight/Heterosexual Cognitive needs: No Hearing needs: No Vision needs: No Questionnaire Thrive Questionnaire Date Thrive assessed: 01/07/24 AUDIT C Alcohol Use Questionnaire (AUDIT-C) 1. How often do you have a drink containing alcohol?: Never 3. How often do you have six or more drinks on one occasion?: Never Total Score: 0 Score Reviewed/Action Taken: Yes ÁNGELA-7 AMB Questionnaire ÁNGELA-7 Date ÁNGELA - 7 assessed: 01/07/24 Source: Developed by Drs. Flakito Mora, Lynda Enrique, Miguel Angel Tse and colleagues, with an educational nona from [employer]. Review of Systems Const Denies chills, Denies fever(s) and Denies headache(s) Eyes Denies blurry vision ENT Denies headache(s), Denies nasal discharge, Denies nasal obstruction, Denies odynophagia and Denies sinus pain Card Denies chest pain at rest and Denies chest pain with activity Resp Denies cough and Denies hemoptysis GI Denies diarrhea, Denies odynophagia, Denies vomiting and Denies hematemesis Reports as per HPI Skin/Breast Reports as per HPI Neuro Denies Neuro-related abnormal movements, Denies Abnormal speech present and Denies headache(s) Psych Denies mood swings and Denies paranoia Endo Reports as per HPI Camilo/Lymph Reports as per HPI Aller/Immun Reports as per HPI Physical exam (Primary Care) Vital Signs: Last Vital Signs Pulse 92 07/07/24 14:18 BP 134/68 07/07/24 14:18 Pulse Ox 97 07/07/24 14:18 Oxygen Delivery Method Room Air 07/07/24 14:18 BMI result Body Mass Index 38.1 Tobacco/Smoking Status: Tobacco use Status Tobacco use date assessed 07/07/24 07/07/24 14:27 Patient Tobacco Use Status Never used Tobacco 07/07/24 14:27 e-Cigarette/Vaping Use Never Used 07/07/24 14:27 Thrive Assessment: Date of Thrive Assessment Date Thrive assessed 01/07/24 07/07/24 14:27 Const General: cooperative, comfortable and no acute distress Orientation/consciousness: patient oriented x3 HENMT Head: Yes normocephalic and Yes atraumatic Eyes General: appearance normal, both eyes and all related structures Pupils: Equal, round and reactive pupils present EOM: EOMs intact bilaterally Neck Neck: Yes supple and No lymphadenopathy Thyroid: Thyroid normal Lymphatic: no lymphadenopathy noted Chest Other: Patient have a scar left breast just above the nipple due to 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 the past Breast/axilla palpation: normal palpation of the breasts Resp Effort & Inspection: normal respiratory effort and able to speak in complete sentences Auscultation: clear to auscultation bilaterally Cardio Heart sounds: S1 normal heart sound present and S2 normal heart sound present GI Other: Incisional hernia lower abdominal wall Palpation (GI): Soft to palpation and nontender Auscultation: normal bowel sounds General: Yes no CVA tenderness Back/Spine/Pelvis Back: no CVA tenderness Skin General skin exam: elasticity normal and turgor normal Neuro General: patient oriented x3 Cranial nerves: Yes Equal, round and reactive pupils present Speech: No Abnormal speech present Extrem General: Yes normal exam except as noted and No edema Office Procedures Flu Questionnaire Does the patient have a severe egg allergy?: No Does the patient have severe life threatening allergies?: No Does the patient have a fever or illness today?: No Has the patient ever had Guillain-[place]ob[place] Syndrome?: No Has the patient ever had any past reaction to a flu shot?: No Immunizations Fluarix Triv [id number] (PF) 45 mcg (15 mcg x 3)/0.5 mL IM syringe Performing Provider: Angela New MD Performing Location: [facility] Administered by: Mela Brown CMA on 07/07/24 14:51 Dose Route Admin Location Dispensed Lot Number Expiration Date [facility] [place] Building [employer] 0.5 mL IM Left Deltoid 0.5 mL [id number] 03/15/26 [id number] [employer] VIS Given Date VIS Provided VIS Publication Date 07/07/24 Single Vaccine 21 Eligibility Eligibility Date Funding Source Not [facility] Eligible 07/07/24 Private Coding Level of Care Code Est Pt Level 4 (86923) Est Pt Prev Care 40-64y(34493) Diagnoses Encounter for general adult medical examination with abnormal findings Z00.01 Hypertension, essential I10 Lipid disorder E78.9 Anxiety, generalized F41.1 Headache syndrome G44.89 Long-term current use of insulin for diabetes mellitus Z79.4; E11.9 Uncontrolled type 2 diabetes mellitus with hyperglycemia E11.65 Glycemic state: with hyperglycemia Morbid obesity due to excess calories E66.01 Primary osteoarthritis of both knees M17.0 Osteoarthritis type: primary Chronic right shoulder pain M25.511; G89.29 Chronicity: chronic Dependent on walker for ambulation Z99.89 Bilateral leg weakness R29.898 Incisional hernia of anterior abdominal wall without obstruction or gangrene K43.2 Colon cancer screening Z12.11 Assessment & Plan Assessment & Plan (1) Encounter for general adult medical examination with abnormal findings: Code(s): Z00.01 - Encounter for general adult medical examination with abnormal findings Category: Medical (2) Hypertension, essential: Code(s): I10 - Essential (primary) hypertension Category: Medical (3) Lipid disorder: Code(s): E78.9 - Disorder of lipoprotein metabolism, unspecified Category: Medical (4) Anxiety, generalized: Code(s): F41.1 - Generalized anxiety disorder Category: Medical (5) Headache syndrome: Code(s): G44.89 - Other headache syndrome Category: Medical (6) Long-term current use of insulin for diabetes mellitus: Code(s): Z79.4 - [facility] (current) use of insulin; E11.9 - Type 2 diabetes mellitus without complications Category: Medical (7) Diabetes type 2, uncontrolled: Code(s): E11.65 - Type 2 diabetes mellitus with hyperglycemia Category: Medical Qualifiers: Glycemic state: with hyperglycemia Qualified Code(s): E11.65 - Type 2 diabetes mellitus with hyperglycemia (8) Morbid obesity due to excess calories: Code(s): E66.01 - Morbid (severe) obesity due to excess calories Category: Medical (9) Osteoarthritis of knees, bilateral: Code(s): M17.0 - Bilateral primary osteoarthritis of knee Category: Medical Qualifiers: Osteoarthritis type: primary Qualified Code(s): M17.0 - Bilateral primary osteoarthritis of knee (10) Shoulder pain, right: Code(s): M25.511 - Pain in right shoulder Category: Medical Qualifiers: Chronicity: chronic Qualified Code(s): M25.511 - Pain in right shoulder; G89.29 - Other chronic pain (11) Dependent on walker for ambulation: Code(s): Z99.89 - Dependence on other enabling machines and devices Category: Medical (12) Bilateral leg weakness: Code(s): R29.898 - Other symptoms and signs involving the musculoskeletal system Category: Medical (13) Incisional hernia of anterior abdominal wall without obstruction or gangrene: Code(s): K43.2 - Incisional hernia without obstruction or gangrene Category: Medical (14) Colon cancer screening: Code(s): Z12.11 - Encounter for screening for malignant neoplasm of colon Category: Medical Plan Patient is a 59-year-old female came in today for physical exam Other providers patient is seeing are Endocrinology Dr. Myers She is on semaglutide injections and managed to lose weight on it Patient is seeing a [facility] for her right shoulder pain And has another provider for her knee pain Patient says that she need knee replacement now that she has lost some weight she can book the appointment in talking further Currently she is using walker for ambulation due to weakness in her legs and knees Patient also suffers from psychiatric disease and is seeing psychiatrist for that To medications are from PCP office lisinopril 10 mg and pravastatin 20 mg Requesting an albuterol inhaler Patient says that her used to smoke a lot and she has long exposure to secondhand smoke Due for mammogram Due for OBGYN visit Due for colonoscopy Lab order placed to be done today Orders: Orders Complete Blood Count Auto Diff Today E11.65 - Type 2 diabetes mellitus with hyperglycemia, E11.9 - Type 2 diabetes mellitus without complications, E66.01 - Morbid (severe) obesity due to excess calories, E78.9 - Disorder of lipoprotein metabolism, unspecified, F41.1 - Generalized anxiety disorder, G44.89 - Other headache syndrome, I10 - Essential (primary) hypertension, Z00.01 - Encounter for general adult medical examination with abnormal findings, Z79.4 - [facility] (current) use of insulin Comprehensive Met. 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 TSH reflex Free T4 Today E11.65 - Type 2 diabetes mellitus with hyperglycemia, E11.9 - Type 2 diabetes mellitus without complications, E66.01 - Morbid (severe) obesity due to excess calories, E78.9 - Disorder of lipoprotein metabolism, unspecified, F41.1 - Generalized anxiety disorder, G44.89 - Other headache syndrome, I10 - Essential (primary) hypertension, Z00.01 - Encounter for general adult medical examination with abnormal findings, Z79.4 - [facility] (current) use of insulin MM tomosynthesis screening BI Today Z12.31 - Encounter for screening mammogram for malignant neoplasm of breast LDL Cholesterol Direct Today E11.65 - Type 2 diabetes mellitus with hyperglycemia, E11.9 - Type 2 diabetes mellitus without complications, E66.01 - Morbid (severe) obesity due to excess calories, E78.9 - Disorder of lipoprotein metabolism, unspecified, F41.1 - Generalized anxiety disorder, G44.89 - Other headache syndrome, I10 - Essential (primary) hypertension, Z00.01 - Encounter for general adult medical examination with abnormal findings, 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 Hemoglobin A1c Today E11.65 - Type 2 diabetes mellitus with hyperglycemia, E11.9 - Type 2 diabetes mellitus without complications, E66.01 - Morbid (severe) obesity due to excess calories, E78.9 - Disorder of lipoprotein metabolism, unspecified, F41.1 - Generalized anxiety disorder, G44.89 - Other headache syndrome, I10 - Essential (primary) hypertension, Z00.01 - Encounter for general adult medical examination with abnormal findings, 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 Microalbumin, Random (w Creat) Today E11.65 - Type 2 diabetes mellitus with hyperglycemia, E11.9 - Type 2 diabetes mellitus without complications, E66.01 - Morbid (severe) obesity due to excess calories, E78.9 - Disorder of lipoprotein metabolism, unspecified, F41.1 - Generalized anxiety disorder, G44.89 - Other headache syndrome, I10 - Essential (primary) hypertension, Z00.01 - Encounter for general adult medical examination with abnormal findings, Z79.4 - [facility] (current) use of insulin Influenza [id number] Immunization Today Z23 - Encounter for immunization Referrals Gastroenterology Referral Z12.11 - Encounter for screening for malignant neoplasm of colon [employer] Referral Z01.419 - Encounter for gynecological examination (general) (routine) without abnormal findings Medications: New albuterol sulfate 90 mcg/actuation (Ventolin HFA) 1 inh inhalation QID PRN 8.5 grams 2RF shortness of breath or wheezing
== END 2024-07-07 15:09 | disposition home or self-care (01) ==
PROVIDERS: PCP Internal Medicine; Visit Provider Internal Medicine
DX: Z00.00 Encounter for general adult medical examination without abnormal findings (principal); E11.65 Type 2 diabetes mellitus with hyperglycemia; E66.01 Morbid (severe) obesity due to excess calories; Z79.4 Long term (current) use of insulin; Z68.38 Body mass index [BMI] 38.0-38.9, adult; I10 Essential (primary) hypertension; E78.9 Disorder of lipoprotein metabolism, unspecified; F41.1 Generalized anxiety disorder; G44.89 Other headache syndrome; M17.0 Bilateral primary osteoarthritis of knee; M25.511 Pain in right shoulder; G89.29 Other chronic pain; Z99.89 Dependence on other enabling machines and devices

== ENCOUNTER → 2024-07-07 14:16 | Outpatient (BNVA) | payer OTHER, SELFPAY | PROVIDERS: PCP Internal Medicine; Visit Provider Internal Medicine ==

== ENCOUNTER 2024-07-07 14:55 | Outpatient (REF) | payer OTHER, SELFPAY ==
[2024-07-07 16:44] LABS: MANUAL DIFF FLAG NO
[2024-07-07 17:00] LABS: Basophils Absolute Auto 0.1 X10*3/uL (0.0-0.2); Basophils Percent Auto 0.9 % (0-2); Eosinophils Absolute Auto 0.2 X10*3/uL (0.0-0.4); Eosinophils Percent Auto 2.4 % (0-4); Hematocrit 46.4 % (37.0-47.0); Hemoglobin 15.5 g/dl (12.0-16.0); Imm Gran Abs Auto 0.01 X10*3/uL (0.00-0.03); Imm Gran Pct Auto 0.1 % (0.0-0.4); Lymphocytes Absolute Auto 2.3 X10*3/uL (1.2-4.9); Lymphocytes Percent Auto 32.2 % (20-40); Mean Corpuscular HGB Conc 33.4 g/dl (31.0-35.0); Mean Corpuscular Hemoglobin 31.1 pg (27.0-33.0); Mean Platelet Volume 10.7 fL (9.4-12.3); Monocytes Absolute Auto 0.5 X10*3/uL (0.1-1.2); Monocytes Percent Auto 7.7 % (2-11); Neutrophils Percent Auto 56.7 % (45-73); Platelet Count 275 X10*3/uL (160-400); Red Blood Count 4.99 X10*6/uL (4.20-5.50); Red Cell Distribution Width 12.7 % (11.0-16.0)
[2024-07-07 17:23] LABS: Creatinine Urine 215.56 mg/dL; Microalbum/Creatinine Ratio Ur 19.4 ug/mg cr (<30)
[2024-07-07 17:26] LABS: Alanine Aminotransferase 30 U/L (0-31); Albumin Level 4.1 g/dL (3.5-5.0); Alkaline Phosphatase 94 U/L (39-117); Anion Gap 15 (12-20); Aspartate Amino Transferase 24 U/L (5-31); Bilirubin Total 0.3 mg/dL (0.0-1.0); Blood Urea Nitrogen 17 mg/dL (9-16); Carbon Dioxide 22 mmol/L (22-29); Chloride 109 mmol/L (96-108); Estimated Glomerular Filt Rate > 60; Glucose Random 256 mg/dL (60-115); Potassium 4.1 mmol/L (3.3-5.1); Sodium 142 mmol/L (135-145); Total Protein 7.8 g/dL (6.5-8.0)
[2024-07-07 17:41] LABS: TSH reflex Free T4 1.18 uIU/mL (0.32-4.0)
[2024-07-08 05:22] LABS: Estimated Average Glucose 189 mg/dL; Hemoglobin A1C 262.4024 umol/L; Hemoglobin A1c % 8.2 % (<6.0); Total Hemoglobin (HGBA1C) 3938.7488 umol/L
[2024-07-09 09:24] LABS: LDL Cholesterol Direct 90 mg/dL (<100)
== END 2024-07-07 14:56 | disposition home or self-care (01) ==
LOC: HO.HMGCLDS 14:55
PROVIDERS: PCP Internal Medicine; Visit Provider Internal Medicine
DX: Z00.01 Encounter for general adult medical examination with abnormal findings (principal); Z23 Encounter for immunization; I10 Essential (primary) hypertension; E78.9 Disorder of lipoprotein metabolism, unspecified; F41.1 Generalized anxiety disorder; G44.89 Other headache syndrome; E66.01 Morbid (severe) obesity due to excess calories; E11.65 Type 2 diabetes mellitus with hyperglycemia; Z79.4 Long term (current) use of insulin
CPT/HCPCS: 36415; 80053; 82043; 82570; 83036; 83721; 84443; 85025; 90471; 90656; 99212; 99396